=== PATIENT | female | born 2000 | race Caucasian/White ===

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

== ENCOUNTER 2019-02-25 23:41 | Emergency (ER) | payer MEDICAID, OTHER ==
[2019-02-25 23:54] LABS: BILIRUBIN,URINE NEGATIVE (NEGATIVE); GLUCOSE, URINE (UA) NEGATIVE (NEGATIVE); KETONES,URINE (UA) NEGATIVE (NEGATIVE); LEUKOCYTE ESTERASE, URINE NEGATIVE (NEGATIVE); NITRITE,URINE NEGATIVE (NEGATIVE); OCCULT BLOOD,URINE NEGATIVE (NEGATIVE); PH,URINE 7.5 PH (5.0-7.5); PROTEIN,URINE NEGATIVE (NEGATIVE); UROBILINOGEN,URINE 0.2 (NORMAL) E.U./dL (NORMAL)
--- NOTE | 2019-02-25 23:54 | ED Physician Documentation ---
PD HPI NVD - Stated complaint Stated Complaint: VOMITING/BODY ACHES - History obtained from History obtained from: Patient - History of Present Illness Timing - onset: How many days ago (3-4) Timing - duration: Days (3-4) Timing - details: Abrupt onset (onset vomiting and diarrhea (mild) with diffuse crampy abd pain 3-4 days ago, that has persisted. Has general myalgias and malaise, some URI/congestion. No headache.), Still present Associated symptoms: Fever, Abdominal pain (diffuse crampy), Loss of appetite Contributing factors: No: Sick contact, Bad food, Travel Improved by: No: Vomiting Worsened by: Eating Similar symptoms before: Has not had sx before Recently seen: Not recently seen Review of Systems Constitutional: reports: Fever, Myalgias, Fatigue Nose: reports: Congestion Throat: reports: Sore throat Respiratory: denies: Cough GI: reports: Abdominal Pain, Nausea, Vomiting, Diarrhea. denies: Abdominal Swelling, Constipation, Hematemesis, Bloody / black stool : denies: Dysuria, Frequency Skin: denies: Rash Neurologic: reports: Generalized weakness. denies: Altered mental status, Headache PD PAST MEDICAL HISTORY - Past Medical History Respiratory: Asthma - Past Surgical History Past Surgical History: No - Present Medications Home Medications: Ambulatory Orders Medication Instructions Recorded Confirmed Naproxen [Naprosyn] 500 mg PO BID #20 tablet 11/20/18 RX: cephALEXin [Cephalexin] 500 mg PO TID #20 tablet 11/20/18 Ondansetron Odt [Zofran] 4 mg TL Q6H PRN #15 tablet 02/26/19 RX: Famotidine 20 mg PO DAILY #15 tablet 02/26/19 - Allergies Allergies/Adverse Reactions: Allergies Allergy/AdvReac Type Severity Reaction Status Date / Time iodine Allergy Anaphylaxis Verified 02/25/19 23:49 Penicillins Allergy swelling Verified 11/20/18 15:35 - Social History Does the pt smoke?: Yes Smoking Status: Current every day smoker Does the pt drink ETOH?: Yes Does the pt have substance abuse?: No - Immunizations Immunizations are current?: No Immunizations: TDAP >10years/unknown - POLST Patient has POLST: No PD ED PE NORMAL - Vitals Vital signs reviewed: Yes - General General: Alert and oriented X 3, Well developed/nourished - HEENT HEENT: Ears normal, Pharynx benign. No: Moist mucous membranes - Neck Neck: Supple, no meningeal sign, No adenopathy - Cardiac Cardiac: RRR, No murmur - Respiratory Respiratory: Clear bilaterally - Abdomen Abdomen: Soft, Non distended, No organomegaly, Other (Diffuse mildly tender without guarding nor percussion tenderness. Not focally tender. ). No: Normal bowel sounds (diminished) - Female Female : Deferred - Rectal Rectal: Deferred - Back Back: No CVA TTP - Derm Derm: Normal color, Warm and dry - Neuro Neuro: Alert and oriented X 3, No motor deficit, Normal speech Results - Vitals Vitals: Vital Signs - 24 hr 02/25/19 02/25/19 02/26/19 23:49 23:53 01:43 Temperature 36.9 C 36.6 C Heart Rate 100 100 90 Respiratory 16 16 16 Rate Blood Pressure 115/67 115/67 102/67 O2 Saturation 96 96 99 Oxygen O2 Source Room air - Labs Labs: Laboratory Tests 02/25/19 02/26/19 02/26/19 23:45 00:20 00:20 WBC 4.2 L RBC 4.42 Hgb 12.7 Hct 38.0 MCV 86.0 MCH 28.7 MCHC 33.4 RDW 13.6 Plt Count 159 MPV 11.1 H Neut # (Auto) 2.4 Lymph # (Auto) 1.1 L [place] # (Auto) 0.7 Eos # (Auto) 0.1 Baso # (Auto) 0.0 Absolute Nucleated RBC 0.00 Nucleated RBC % 0.0 Sodium 138 Potassium 3.6 Chloride 104 Carbon Dioxide 24 Anion Gap 10.0 BUN 8 Creatinine 0.5 Estimated GFR (MDRD) 159 Glucose 103 H Calcium 8.7 Total Bilirubin 0.6 AST 26 ALT 30 Alkaline Phosphatase 53 Total Protein 6.9 Albumin 3.9 Globulin 3.0 Albumin/Globulin Ratio 1.3 Lipase 141 H Urine Color YELLOW Urine Clarity CLEAR Urine pH 7.5 Ur Specific [place] <=1.005 Urine Protein NEGATIVE Urine Glucose (UA) NEGATIVE Urine Ketones NEGATIVE Urine Occult Blood NEGATIVE Urine Nitrite NEGATIVE Urine Bilirubin NEGATIVE Urine Urobilinogen 0.2 (NORMAL) Ur Leukocyte Esterase NEGATIVE Ur Microscopic Review NOT INDICATED Urine Culture Comments NOT INDICATED Urine HCG, Qual NEGATIVE PD MEDICAL DECISION MAKING - ED course Complexity details: reviewed results, re-evaluated patient (improved symptoms and able to take PO after meds and fluids. Feeling improved. Labs are pretty good. Isolated elevated Lipase, I think from vomiting. ), considered differential, d/w patient Departure - Departure Disposition: 01 Home, Self Care Clinical Impression: Viral illness Nausea and vomiting Qualifiers: Vomiting type: unspecified Vomiting Intractability: intractable Qualified Code(s): R11.2 - Nausea with vomiting, unspecified Condition: Stable Record reviewed to determine appropriate education?: Yes Instructions: ED Nausea Vomiting Prescriptions: RX: Famotidine 20 mg PO DAILY #15 tablet Ondansetron Odt [Zofran] 4 mg TL Q6H PRN #15 tablet PRN Reason: Nausea / Vomiting Comments: Your stomach will be irritated for several days still so bland food and frequent fluids without too much spicy. Consider some acid reducing medicine such as famotidine daily for a week or 2. Add in some antacid such as Maalox or Mylanta if needed for heartburn or indigestion. Use ondansetron if needed for persistent nausea. I would assume your illness will improve now over the next day or 2 and be back to normal within a few days. Discharge Date/Time: 02/26/19 01:55
[2019-02-25 23:57] LABS: CLARITY,URINE CLEAR (CLEAR); HCG UR QUAL NEGATIVE
[2019-02-26] MEDS ORDERED: ONDANSETRON 4 MG/2 ML VIAL IVP STA (00:04)
[2019-02-26] MEDS ORDERED: FAMOTIDINE 20 MG/2 ML VIAL IVP STA (00:04)
[2019-02-26] MEDS ORDERED: KETOROLAC 15 MG/ML VIAL IVP STA (00:04)
[2019-02-26] MEDS ORDERED: SODIUM CHLORIDE 0.9% 1,000 ML IV ONE ×2 (00:04)
[2019-02-26 00:30] LABS: EOSINOPHILS # (AUTO) 0.1 10^3/uL (0.0-0.7); EOSINOPHILS % (AUTO) 1.9 %; HGB - HEMOGLOBIN 12.7 g/dL (12.0-16.0); LYMPHOCYTES # (AUTO) 1.1 10^3/uL (1.5-3.5); LYMPHOCYTES % (AUTO) 25.5 %; MEAN CORPUSCULAR HEMOGLOBIN 28.7 pg (27.0-31.0); MEAN CORPUSCULAR HGB CONC 33.4 g/dL (32.0-36.0); MEAN PLATELET VOLUME 11.1 fL (7.9-10.8); MONOCYTES # (AUTO) 0.7 10^3/uL (0.0-1.0); NEUTROPHILS # (AUTO) 2.4 10^3/uL (1.5-6.6); NEUTROPHILS % (AUTO) 56.4 %; PLT - PLATELET COUNT 159 10^3/uL (130-450); RED BLOOD COUNT 4.42 10^6/uL (4.20-5.40); RED CELL DISTRIBUTION WIDTH 13.6 % (12.0-15.0); WHITE BLOOD COUNT 4.2 x10^3/uL (4.8-10.8)
[2019-02-26 00:41] LABS: ALBUMIN 3.9 g/dL (3.2-5.5); ALBUMIN/GLOBULIN RATIO 1.3 (1.0-2.2); BILIRUBIN,TOTAL 0.6 mg/dL (0.2-1.0); CALCIUM 8.7 mg/dL (8.5-10.3); CREATININE 0.5 mg/dL (0.4-1.0); TOTAL PROTEIN 6.9 g/dL (6.7-8.2)
[2019-02-26] MEDS ORDERED: MAG HYDROX/AL HYDROX/SIMETH 30 ML UDC PO STA (01:09)
[2019-02-26] MEDS ORDERED: ONDANSETRON ODT 4 MG Prepack 2 TL PRN (01:10)
[2019-02-26 01:44] VITALS: BP 102/67
== END 2019-02-26 01:55 | disposition home or self-care (01) ==
LOC: ED 23:41
DX: B34.9 Viral infection, unspecified (principal); R11.2 Nausea with vomiting, unspecified; F17.200 Nicotine dependence, unspecified, uncomplicated
CPT/HCPCS: 36415; 80053; 81003; 81025; 83690; 85025; 96361; 96374; 99283; A9270; 81001; 87086

== ENCOUNTER 2019-06-23 07:43 | Outpatient (CLI) | payer MEDICAID | END 2019-06-23 07:44 | disposition critical access hospital (66) | LOC: EMS 07:43 | PROVIDERS: ATTEND Surgery | DX: R11.2 Nausea with vomiting, unspecified (principal); Z59.0 Homelessness | CPT/HCPCS: A0425; A0427; A0999 ==

== ENCOUNTER 2019-06-23 08:21 | Emergency (ER) | payer MEDICAID ==
[2019-06-23] MEDS ORDERED: FAMOTIDINE 20 MG/2 ML VIAL IVP STA (08:34)
[2019-06-23] MEDS ORDERED: METOCLOPRAMIDE 10 MG/2 ML VIAL IVP STA (08:34)
[2019-06-23] MEDS ORDERED: LACTATED RINGERS 1,000 ML IV STA (08:34)
--- NOTE | 2019-06-23 08:37 | ED Physician Documentation ---
History of Present Illness - Stated complaint Stated Complaint: N/V/ ABD PAIN - Chief complaint Chief Complaint: Abd Pain - Additonal information Additional information: This is a 18-year-old female who presents with vomiting and abdominal d iscomfort. Patient states she shared 2 bottles of [place] Rum last night with friends, she also snorted some Vicodin, she woke up at 3:30 AM this morning feeling malaise and has been vomiting since then. She states that her stomach is diffusely uncomfortable, She denies a specific area of worse pain. No history of abdominal problems or surgeries. No dysuria Review of Systems Constitutional: denies: Fever Cardiac: denies: Chest pain / pressure Respiratory: denies: Dyspnea GI: reports: Nausea, Vomiting : denies: Dysuria Skin: denies: Rash Neurologic: denies: Generalized weakness Psychiatric: denies: Depressed PD PAST MEDICAL HISTORY - Past Medical History Respiratory: Asthma - Past Surgical History Past Surgical History: No - Present Medications Home Medications: Ambulatory Orders Medication Instructions Recorded Confirmed Ondansetron Odt [Zofran] 4 mg TL Q6H PRN #10 tablet 06/23/19 - Allergies Allergies/Adverse Reactions: Allergies Allergy/AdvReac Type Severity Reaction Status Date / Time iodine Allergy Anaphylaxis Verified 06/23/19 08:25 Penicillins Allergy swelling Verified 06/23/19 08:25 - Social History Does the pt smoke?: Yes Smoking Status: Current every day smoker Does the pt drink ETOH?: Yes Does the pt have substance abuse?: No - Immunizations Immunizations are current?: No Immunizations: TDAP >10years/unknown - POLST Patient has POLST: No PD ED PE NORMAL - Vitals Vital signs reviewed: Yes - General General: Alert and oriented X 3 - HEENT HEENT: PERRL - Neck Neck: Supple, no meningeal sign - Cardiac Cardiac: RRR, No murmur - Respiratory Respiratory: No respiratory distress, Clear bilaterally - Abdomen Abdomen: Soft, Non distended, Other (Very mild epigastric discomfort with deep palpation.) - Derm Derm: Warm and dry - Extremities Extremities: No deformity - Neuro Neuro: Alert and oriented X 3 - Psych Psych: Normal mood, Normal affect Results - Vitals Vitals: Vital Signs - 24 hr 06/23/19 06/23/19 06/23/19 08:24 08:25 10:07 Temperature 36.5 C Heart Rate 77 78 83 Respiratory 18 18 15 Rate Blood Pressure 126/93 H 108/81 H 106/64 O2 Saturation 100 99 100 Oxygen O2 Source Room air - Labs Labs: Laboratory Tests 06/23/19 06/23/19 06/23/19 08:47 08:47 08:47 WBC 6.4 RBC 4.40 Hgb 12.3 Hct 37.9 MCV 86.1 MCH 28.0 MCHC 32.5 RDW 14.7 Plt Count 174 MPV 11.0 H Neut # (Auto) 5.2 Lymph # (Auto) 0.[address] [place] # (Auto) 0.2 Eos # (Auto) 0.0 Baso # (Auto) 0.0 Absolute Nucleated RBC 0.00 Nucleated RBC % 0.0 Sodium 143 Potassium 3.9 Chloride 109 Carbon Dioxide 25 Anion Gap 9.0 BUN 11 Creatinine 0.6 Estimated GFR (MDRD) 129 Glucose 126 H Calcium 8.6 Total Bilirubin 0.5 AST 21 ALT 23 Alkaline Phosphatase 53 Total Protein 7.1 Albumin 4.2 Globulin 2.9 Albumin/Globulin Ratio 1.4 Lipase 33 Serum HCG, Qual NEGATIVE PD MEDICAL DECISION MAKING - ED course Complexity details: considered differential (Alcohol intoxication, alcoholic gastritis, pancreatitis, electrolyte disturbance, dehydration) ED course: Patient is uncomfortable appearing but non-toxic on arrival. She is given zofran, famotidine, and crystalloid IV. Afterwards she was feeling better but continued to have some epigastric discomfort. CBC, CMP unremarkable, lipase normal, HCG negative. After a GI cocktail she is feeling much improved and eager to go home. She is clinically sober, tolerating PO, and has a benign, non- tender abdominal exam. I discussed that this is likely a mixture of alcohol gastritis and a hangover and patient should stop drinking and needs to be particularly careful combining sedating medications. I discussed the risks of narcotic medications in depth and counseled her to completely avoid them. Return precautions were discussed and patient was discharged in the care of her friends. Departure - Departure Disposition: Home, Self Care Clinical Impression: Alcoholic gastritis Qualifiers: Chronicity: acute Gastritis bleeding: without bleeding Qualified Code(s): K29.20 - Alcoholic gastritis without bleeding Condition: Good Follow-Up: Your,PCP [Other] - Within 1 week Prescriptions: Ondansetron Odt [Zofran] 4 mg TL Q6H PRN #10 tablet PRN Reason: Nausea / Vomiting Comments: You were seen today for vomiting and abdominal discomfort. This is likely due to inflammation of your stomach caused by the alcohol last night. Your labs today were reassuring. Please drink plenty of fluids, avoid any further drugs or alcohol, and if you are having any persistent abdominal pain or vomiting despite the Zofran, return to the emergency department. Discharge Date/Time: 06/23/19 10:33
[2019-06-23 08:54] LABS: BASOPHILS % (AUTO) 0.3 %; EOSINOPHILS % (AUTO) 0.6 %; HGB - HEMOGLOBIN 12.3 g/dL (12.0-16.0); LYMPHOCYTES # (AUTO) 0.9 10^3/uL (1.5-3.5); LYMPHOCYTES % (AUTO) 13.7 %; MEAN CORPUSCULAR HGB CONC 32.5 g/dL (32.0-36.0); MEAN CORPUSCULAR VOLUME 86.1 fL (81.0-99.0); MONOCYTES # (AUTO) 0.2 10^3/uL (0.0-1.0); MONOCYTES % (AUTO) 2.8 %; NEUTROPHILS # (AUTO) 5.2 10^3/uL (1.5-6.6); NEUTROPHILS % (AUTO) 82.1 %; PLT - PLATELET COUNT 174 10^3/uL (130-450); RED CELL DISTRIBUTION WIDTH 14.7 % (12.0-15.0); WHITE BLOOD COUNT 6.4 x10^3/uL (4.8-10.8)
[2019-06-23 09:06] LABS: ALBUMIN 4.2 g/dL (3.2-5.5); ALBUMIN/GLOBULIN RATIO 1.4 (1.0-2.2); BILIRUBIN,TOTAL 0.5 mg/dL (0.2-1.0); CALCIUM 8.6 mg/dL (8.5-10.3); CREATININE 0.6 mg/dL (0.4-1.0); TOTAL PROTEIN 7.1 g/dL (6.7-8.2)
[2019-06-23 09:18] LABS: HCG,QUALITATIVE BLOOD NEGATIVE
[2019-06-23] MEDS ORDERED: MAG HYDROX/AL HYDROX/SIMETH 30 ML UDC PO STA (09:59)
[2019-06-23 10:08] VITALS: BP 106/64
== END 2019-06-23 10:33 | disposition home or self-care (01) ==
LOC: EDUNIT# → ED 08:21
DX: K29.20 Alcoholic gastritis without bleeding (principal); F17.200 Nicotine dependence, unspecified, uncomplicated
CPT/HCPCS: 36415; 80053; 83690; 84703; 85025; 96361; 96374; 96375; 99283; A9270; J2765; J7120

== ENCOUNTER 2019-07-12 15:31 | Emergency (ER) | payer MEDICAID ==
[2019-07-12 15:46] VITALS: BP 112/69
--- NOTE | 2019-07-12 17:54 | ED Physician Documentation ---
PD HPI FEMALE - Stated complaint Stated Complaint: FEM - Chief complaint Chief Complaint: Abd Pain - History obtained from History obtained from: Patient PD PAST MEDICAL HISTORY - Past Medical History Respiratory: Asthma - Past Surgical History Past Surgical History: No - Present Medications Home Medications: Ambulatory Orders Medication Instructions Recorded Confirmed Ondansetron Odt [Zofran] 4 mg TL Q6H PRN #10 tablet 06/23/19 - Allergies Allergies/Adverse Reactions: Allergies Allergy/AdvReac Type Severity Reaction Status Date / Time iodine Allergy Anaphylaxis Verified 07/12/19 15:46 Penicillins Allergy swelling Verified 07/12/19 15:46 - Social History Does the pt smoke?: Yes Smoking Status: Current every day smoker Does the pt drink ETOH?: Yes Does the pt have substance abuse?: No - Immunizations Immunizations are current?: No Immunizations: TDAP >10years/unknown - POLST Patient has POLST: No Results - Vitals Vitals: Vital Signs - 24 hr 07/12/19 15:40 Temperature 36.8 C Heart Rate 105 H Respiratory 17 Rate Blood Pressure 112/69 O2 Saturation 100 Oxygen O2 Source Room air
== END 2019-07-12 18:03 | disposition left against medical advice (07) ==
LOC: ED 15:31
DX: Z53.21 Procedure and treatment not carried out due to patient leaving prior to being seen by health care provider (principal)
CPT/HCPCS: 81001; 81003; 81025; 87086

== ENCOUNTER 2020-08-18 12:17 | Emergency (ER) | payer MEDICAID ==
[2020-08-18] MEDS ORDERED: ONDANSETRON 4 MG/2 ML VIAL IVP STA (12:31)
[2020-08-18] MEDS ORDERED: KETOROLAC 30 MG/ML VIAL IVP STA (12:31)
[2020-08-18] MEDS ORDERED: LOPERAMIDE 2 MG CAPSULE PO STA (12:31)
[2020-08-18] MEDS ORDERED: SODIUM CHLORIDE 0.9% 1,000 ML IV STA (12:31)
--- NOTE | 2020-08-18 12:33 | ED Physician Documentation ---
PD HPI ABD PAIN - Stated complaint Stated Complaint: NAUSEA, SHAKES, SHIVERS - Chief complaint Chief Complaint: Abd Pain - History obtained from History obtained from: Patient - Additional information Additional information: 19 yo F with history of gastritis or ulcers, not under current treatment for same felt nauseous all day yesterday and then overnight developed vomiting, upper abdominal pain that she describes as cramping, and mild diarrhea. No blood from either end. No history of recent travel or sick contacts. No fevers. Review of Systems Ten Systems: 10 systems reviewed and negative Constitutional: reports: Sweats. denies: Fever, Chills Cardiac: denies: Chest pain / pressure, Palpitations Respiratory: denies: Dyspnea, Cough PD PAST MEDICAL HISTORY - Past Medical History Respiratory: Asthma - Past Surgical History Past Surgical History: No - Present Medications Home Medications: Ambulatory Orders Medication Instructions Recorded Confirmed Ondansetron Odt [Zofran] 4 mg TL Q6H PRN #10 tablet 06/23/19 Dicyclomine [Bentyl] 1 - 2 tab PO QID PRN #20 capsule 08/18/20 Loperamide [Imodium] 2 mg PO QID PRN #10 capsule 08/18/20 Ondansetron Odt [Zofran] 4 mg TL Q6H PRN #10 tablet 08/18/20 - Allergies Allergies/Adverse Reactions: Allergies Allergy/AdvReac Type Severity Reaction Status Date / Time iodine Allergy Anaphylaxis Verified 08/18/20 12:23 Penicillins Allergy swelling Verified 08/18/20 12:23 - Social History Does the pt smoke?: Yes Smoking Status: Current every day smoker Does the pt drink ETOH?: Yes Does the pt have substance abuse?: No - Family History Family history: reports: Non contributory - Immunizations Immunizations are current?: No Immunizations: TDAP >10years/unknown - POLST Patient has POLST: No PD ED PE NORMAL - Vitals Vital signs reviewed: Yes - General General: Alert and oriented X 3, Other (Is uncomfortable and shaky) - HEENT HEENT: PERRL, EOMI - Neck Neck: Supple, no meningeal sign, No bony TTP - Cardiac Cardiac: RRR, No murmur - Respiratory Respiratory: No respiratory distress, Clear bilaterally - Abdomen Abdomen: Other (Mild upper abdominal tenderness that does not seem to lateralize, no surgical sign, negative Sanchez sign. No lower abdominal tenderness) - Back Back: No CVA TTP, No spinal TTP - Derm Derm: Normal color, Warm and dry - Extremities Extremities: No edema, No calf tenderness / cord - Neuro Neuro: Alert and oriented X 3, Normal speech Eye Opening: Spontaneous Motor: Obeys Commands Verbal: Oriented GCS Score: 15 - Psych Psych: Normal mood, Normal affect Results - Vitals Vitals: Vital Signs - 24 hr 08/18/20 08/18/20 08/18/20 12:23 13:38 15:05 Temperature 36.5 C Heart Rate 97 98 82 Respiratory 18 16 15 Rate Blood Pressure 109/69 82/48 L 97/60 O2 Saturation 100 97 96 08/18/20 15:26 Temperature 37.3 C Heart Rate 110 H Respiratory 15 Rate Blood Pressure 97/60 O2 Saturation 97 Oxygen O2 Source Room air - Labs Labs: Laboratory Tests 08/18/20 08/18/20 08/18/20 12:40 12:40 13:30 WBC 11.8 H RBC 4.72 Hgb 13.7 Hct 40.7 MCV 86.2 MCH 29.0 MCHC 33.7 RDW 13.2 Plt Count 219 MPV 10.5 Neut # (Auto) 10.6 H Lymph # (Auto) 0.8 L [place] # (Auto) 0.2 Eos # (Auto) 0.2 Baso # (Auto) 0.0 Absolute Nucleated RBC 0.00 Nucleated RBC % 0.0 Sodium 142 Potassium 4.0 Chloride 108 Carbon Dioxide 19 L Anion Gap 15.0 H BUN 16 Creatinine 0.7 Estimated GFR (MDRD) 107 Glucose 137 H Calcium 9.4 Total Bilirubin 0.8 AST 26 ALT 30 Alkaline Phosphatase 66 Total Protein 8.6 H Albumin 5.1 Globulin 3.5 Albumin/Globulin Ratio 1.5 Lipase 26 Urine Color YELLOW Urine Clarity CLEAR Urine pH 7.5 Ur Specific [place] 1.020 Urine Protein TRACE Urine Glucose (UA) NEGATIVE Urine Ketones 15 H Urine Occult Blood NEGATIVE Urine Nitrite NEGATIVE Urine Bilirubin NEGATIVE Urine Urobilinogen 0.2 (NORMAL) Ur Leukocyte Esterase NEGATIVE Ur Microscopic Review NOT INDICATED Urine Culture Comments NOT INDICATED Urine HCG, Qual NEGATIVE PD MEDICAL DECISION MAKING - ED course ED course: 19-year-old woman with seeming viral gastroenteritis. Vomiting, diarrhea, upper abdominal cramps. She was administered initially Zofran, Toradol, Imodium and felt better, but failed an oral challenge. Subsequently was administered some Phenergan and a GI cocktail with complete resolution and passed a p.o. challenge. Nontender on repeat examination prior to discharge. Given close return precautions. Departure - Departure Disposition: Home, Self Care Clinical Impression: Gastroenteritis Condition: Good Record reviewed to determine appropriate education?: Yes Instructions: ED Gastroenteritis Viral Prescriptions: Dicyclomine [Bentyl] 1 - 2 tab PO QID PRN #20 capsule PRN Reason: Abdominal Pain Loperamide [Imodium] 2 mg PO QID PRN #10 capsule PRN Reason: Diarrhea Ondansetron Odt [Zofran] 4 mg TL Q6H PRN #10 tablet PRN Reason: Nausea / Vomiting Comments: As discussed it seems like you have a viral process known as gastroenteritis. Generally this only lasts a day or 2. Return Wednesday if not improved, anytime for new or worsening symptoms, especially if you develop lower abdominal pain as discussed.
[2020-08-18 12:45] LABS: BASOPHILS % (AUTO) 0.2 %; EOSINOPHILS # (AUTO) 0.2 10^3/uL (0.0-0.7); EOSINOPHILS % (AUTO) 1.4 %; HGB - HEMOGLOBIN 13.7 g/dL (12.0-16.0); LYMPHOCYTES # (AUTO) 0.8 10^3/uL (1.5-3.5); LYMPHOCYTES % (AUTO) 6.7 %; MEAN CORPUSCULAR HGB CONC 33.7 g/dL (32.0-36.0); MEAN CORPUSCULAR VOLUME 86.2 fL (81.0-99.0); MEAN PLATELET VOLUME 10.5 fL (7.9-10.8); MONOCYTES # (AUTO) 0.2 10^3/uL (0.0-1.0); MONOCYTES % (AUTO) 1.7 %; NEUTROPHILS # (AUTO) 10.6 10^3/uL (1.5-6.6); NEUTROPHILS % (AUTO) 89.6 %; PLT - PLATELET COUNT 219 10^3/uL (130-450); RED BLOOD COUNT 4.72 10^6/uL (4.20-5.40); RED CELL DISTRIBUTION WIDTH 13.2 % (12.0-15.0); WHITE BLOOD COUNT 11.8 x10^3/uL (4.8-10.8)
[2020-08-18 12:59] LABS: ALBUMIN 5.1 g/dL (3.2-5.5); ALBUMIN/GLOBULIN RATIO 1.5 (1.0-2.2); BILIRUBIN,TOTAL 0.8 mg/dL (0.2-1.0); CALCIUM 9.4 mg/dL (8.5-10.3); CREATININE 0.7 mg/dL (0.4-1.0); TOTAL PROTEIN 8.6 g/dL (6.7-8.2)
[2020-08-18 13:54] LABS: BILIRUBIN,URINE NEGATIVE (NEGATIVE); GLUCOSE, URINE (UA) NEGATIVE (NEGATIVE); KETONES,URINE (UA) 15 mg/dL (NEGATIVE); LEUKOCYTE ESTERASE, URINE NEGATIVE (NEGATIVE); NITRITE,URINE NEGATIVE (NEGATIVE); OCCULT BLOOD,URINE NEGATIVE (NEGATIVE); PH,URINE 7.5 PH (5.0-7.5); PROTEIN,URINE TRACE mg/dL (NEGATIVE); UROBILINOGEN,URINE 0.2 (NORMAL) E.U./dL (NORMAL)
[2020-08-18] MEDS ORDERED: PROMETHAZINE INJ 25 MG in SODIUM CHLORIDE 0.9% 50 ML IV STA (13:57)
[2020-08-18 14:02] LABS: CLARITY,URINE CLEAR (CLEAR); HCG UR QUAL NEGATIVE
[2020-08-18] MEDS ORDERED: LIDOCAINE VISCOUS 2% 15 ML UDC MM STA (14:41)
[2020-08-18] MEDS ORDERED: MAG HYDROX/AL HYDROX/SIMETH 30 ML UDC PO STA (14:41)
[2020-08-18 15:06] VITALS: BP 97/60
== END 2020-08-18 15:50 | disposition home or self-care (01) ==
LOC: ED 12:17
DX: K52.9 Noninfective gastroenteritis and colitis, unspecified (principal); F17.200 Nicotine dependence, unspecified, uncomplicated
CPT/HCPCS: 36415; 80053; 81003; 81025; 83690; 85025; 96365; 96375; 99284; A9270; J7040; 81001; 87086

== ENCOUNTER 2020-10-18 09:19 | Outpatient (CLI) | payer MEDICAID | END 2020-10-18 09:20 | disposition critical access hospital (66) | LOC: EMS 09:19 | PROVIDERS: ATTEND Emergency Medicine | DX: R06.00 Dyspnea, unspecified (principal) | CPT/HCPCS: A0425; A0429; A0999 ==

== ENCOUNTER 2020-10-18 09:34 | Emergency (ER) | payer MEDICAID ==
[2020-10-18] MEDS ORDERED: SODIUM CHLORIDE 0.9% 1,000 ML IV STA (09:43)
[2020-10-18] MEDS ORDERED: DEXAMETHASONE 10 MG/ML VIAL IVP STA (09:43)
--- NOTE | 2020-10-18 09:46 | ED Physician Documentation ---
PD HPI DYSPNEA - Stated complaint Stated Complaint: SOA - History obtained from History obtained from: Patient - History of Present Illness Timing - onset: How many days ago (4) Timing - onset during: Rest Timing - duration: Days (4) Timing - details: Gradual onset, Still present Inciting event(s): URI Improved by: Inhaler/neb Worsened by: Exertion, Coughing Associated symptoms: Cough, Wheezing, Chest pain / discomfort. No: Fever Similar symptoms before: Diagnosis (asthma) Recently seen: Not recently seen Review of Systems Constitutional: denies: Fever Eyes: denies: Decreased vision Ears: denies: Ear pain Nose: reports: Congestion. denies: Rhinorrhea / runny nose Throat: denies: Sore throat Cardiac: reports: Chest pain / pressure. denies: Palpitations, Pedal edema, Calf pain Respiratory: reports: Dyspnea, Cough, Wheezing GI: reports: Nausea, Vomiting, Diarrhea. denies: Abdominal Pain, Constipation : denies: Dysuria, Frequency Skin: denies: Rash Musculoskeletal: denies: Neck pain, Back pain, Extremity pain Neurologic: denies: Generalized weakness, Focal weakness PD PAST MEDICAL HISTORY - Past Medical History Respiratory: Asthma - Past Surgical History Past Surgical History: No - Present Medications Home Medications: Ambulatory Orders Medication Instructions Recorded Confirmed Ondansetron Odt [Zofran] 4 mg TL Q6H PRN #10 tablet 06/23/19 Dicyclomine [Bentyl] 1 - 2 tab PO QID PRN #20 capsule 08/18/20 Loperamide [Imodium] 2 mg PO QID PRN #10 capsule 08/18/20 Ondansetron Odt [Zofran] 4 mg TL Q6H PRN #10 tablet 08/18/20 Albuterol Sulf [Ventolin Hfa 1 - 2 puffs INH Q4HR PRN #1 inhaler 10/18/20 Inhaler] Azithromycin [Zithromax] 250 mg PO DAILY #6 tab 10/18/20 predniSONE [Deltasone] 40 mg PO DAILY 5 Days #10 tab 10/18/20 - Allergies Allergies/Adverse Reactions: Allergies Allergy/AdvReac Type Severity Reaction Status Date / Time iodine Allergy Anaphylaxis Verified 10/18/20 09:45 Penicillins Allergy swelling Verified 10/18/20 09:45 - Social History Does the pt smoke?: Yes Smoking Status: Current every day smoker Does the pt drink ETOH?: Yes Does the pt have substance abuse?: No - Immunizations Immunizations are current?: No Immunizations: TDAP >10years/unknown - POLST Patient has POLST: No PD ED PE NORMAL - Vitals Vital signs reviewed: Yes (normal ) - General General: Alert and oriented X 3, No acute distress, Well developed/nourished - HEENT HEENT: Atraumatic, PERRL, EOMI, Ears normal, Pharynx benign - Neck Neck: Supple, no meningeal sign, No bony TTP - Cardiac Cardiac: RRR, No murmur - Respiratory Respiratory: Other (tachypneic at rest with wheezes and rhonchi throughout with fair air movement. 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, No motor deficit, No sensory deficit, Normal speech Eye Opening: Spontaneous Motor: Obeys Commands Verbal: Oriented GCS Score: 15 - Psych Psych: Normal mood, Normal affect Results - Vitals Vitals: Vital Signs - 24 hr 10/18/20 10/18/20 09:39 10:33 Temperature 37.0 C Heart Rate 94 97 Respiratory 22 16 Rate Blood Pressure 123/72 O2 Saturation 96 Oxygen O2 Source Nasal cannula Oxygen Flow Rate 2 - Rads (name of study) cxr Radiology: Prelim report reviewed (Impression: No acute cardiopulmonary process demonstrated radiographically.), EMP read indepedently, See rad report PD MEDICAL DECISION MAKING - ED course Complexity details: reviewed results, re-evaluated patient, considered differential, d/w patient, d/w family ED course: 19 y/o female with asthma exacerbation Has improvement with use of albuterol inhaler she did get a duo neb inhaler in route which helped as well. Here in the emergency room she is given 10 mg of dexamethasone and a liter of saline and we will place her on a course of antibiotic and steroid as well as provide an inhaler for an acute asthma exacerbation with cough. Departure - Departure Disposition: 01 Home, Self Care Clinical Impression: Asthmatic bronchitis with acute exacerbation Qualifiers: Asthma severity: mild Asthma persistence: intermittent Qualified Code(s): J45.21 - Mild intermittent asthma with (acute) exacerbation Condition: Stable Instructions: ED Bronchitis Asthmatic Follow-Up: Chrissy [facility] [Provider Group] Prescriptions: Albuterol Sulf [Ventolin Hfa Inhaler] 1 - 2 puffs INH Q4HR PRN #1 inhaler PRN Reason: Shortness Of Air/Wheezing predniSONE [Deltasone] 40 mg PO DAILY 5 Days #10 tab Azithromycin [Zithromax] 250 mg PO DAILY #6 tab
--- NOTE | 2020-10-18 10:16 | XRAY Report ---
PROCEDURE: Chest 1 View X-Ray INDICATIONS: Shortness of breath TECHNIQUE: One view of the chest was acquired. COMPARISON: None. FINDINGS: Surgical changes and devices: None. Lungs and pleura: No pleural effusions or pneumothorax. Lungs are clear. Mediastinum: Mediastinal contours appear normal. Heart size is normal. Bones and chest wall: No suspicious bony lesions. Overlying soft tissues appear unremarkable. IMPRESSION: No acute cardiopulmonary process demonstrated radiographically. Reviewed by: Dereje Kapadia MD on 10/18/2020 10:14 AM RUST Approved by: Dereje Kapadia MD on 10/18/2020 10:14 AM RUST Station ID: [id number]
[2020-10-18] MEDS ORDERED: ALBUTEROL 1 PUFF INH STA (10:19)
[2020-10-18 10:52] VITALS: BP 120/80
== END 2020-10-18 10:53 | disposition home or self-care (01) ==
LOC: EDUNIT# → ED 09:34
DX: J45.21 Mild intermittent asthma with (acute) exacerbation (principal); R05 Cough; Z20.822 Contact with and (suspected) exposure to COVID-19; F17.200 Nicotine dependence, unspecified, uncomplicated
CPT/HCPCS: 94640; 94664; 96374; 99284

== ENCOUNTER 2020-12-21 10:34 | Emergency (ER) | payer MEDICAID ==
--- OUTSIDE RECORDS SUMMARY | 2020-12-21 10:36 | EXTERNAL MEDICAL SUMMARY RPT | Continuity of Care Document ---
:2000 Demographics Phone Unavailable Preferred Language Unknown Marital Status Unknown Pentecostalism Affiliation Unknown Race Unknown Ethnic Group Unknown Author Organization [place] Address [address] [phone] Phone Social History date description facility [phone]
--- OUTSIDE RECORDS SUMMARY | 2020-12-21 11:31 | EXTERNAL MEDICAL SUMMARY RPT | Continuity of Care Document ---
:2000 Demographics Phone Unavailable Preferred Language Unknown Marital Status Unknown Samaritan Affiliation Unknown Race Unknown Ethnic Group Unknown Author Organization [place] Address [address] [phone] Phone Social History date description facility [phone]
[2020-12-21] MEDS ORDERED: ONDANSETRON 4 MG/2 ML VIAL IVP STA (11:39)
[2020-12-21] MEDS ORDERED: FAMOTIDINE 20 MG/2 ML VIAL IVP STA (11:39)
[2020-12-21] MEDS ORDERED: PROMETHAZINE 25 MG TABLET PO STA (11:39)
[2020-12-21] MEDS ORDERED: LACTATED RINGERS 1,000 ML IV STA (11:39)
[2020-12-21] MEDS ORDERED: LIDOCAINE TOPICAL 4% 50 ML BOTTLE MM STA (11:40)
[2020-12-21] MEDS ORDERED: MAG HYDROX/AL HYDROX/SIMETH 30 ML UDC PO STA (11:40)
[2020-12-21 12:05] LABS: MUDS CUTOFF CONCENTRATIONS CUTOFF CONC BELOW:
[2020-12-21 12:12] LABS: BILIRUBIN,URINE NEGATIVE (NEGATIVE); GLUCOSE, URINE (UA) NEGATIVE (NEGATIVE); KETONES,URINE (UA) 40 mg/dL (NEGATIVE); LEUKOCYTE ESTERASE, URINE NEGATIVE (NEGATIVE); NITRITE,URINE NEGATIVE (NEGATIVE); OCCULT BLOOD,URINE SMALL (NEGATIVE); PH,URINE 5.5 PH (5.0-7.5); PROTEIN,URINE 30 mg/dL (NEGATIVE); UROBILINOGEN,URINE 0.2 (NORMAL) E.U./dL (NORMAL)
[2020-12-21 12:13] LABS: CLARITY,URINE SL. CLOUDY (CLEAR); HCG UR QUAL NEGATIVE
[2020-12-21 12:16] LABS: BASOPHILS % (AUTO) 0.5 %; EOSINOPHILS # (AUTO) 0.1 10^3/uL (0.0-0.7); EOSINOPHILS % (AUTO) 1.5 %; HCT - HEMATOCRIT 44.1 % (37.0-47.0); HGB - HEMOGLOBIN 14.8 g/dL (12.0-16.0); LYMPHOCYTES # (AUTO) 1.1 10^3/uL (1.5-3.5); LYMPHOCYTES % (AUTO) 18.1 %; MEAN CORPUSCULAR HEMOGLOBIN 28.5 pg (27.0-31.0); MEAN CORPUSCULAR HGB CONC 33.6 g/dL (32.0-36.0); MEAN CORPUSCULAR VOLUME 84.8 fL (81.0-99.0); MONOCYTES # (AUTO) 0.2 10^3/uL (0.0-1.0); MONOCYTES % (AUTO) 4.1 %; NEUTROPHILS # (AUTO) 4.5 10^3/uL (1.5-6.6); NEUTROPHILS % (AUTO) 75.5 %; PLT - PLATELET COUNT 215 10^3/uL (130-450); RED CELL DISTRIBUTION WIDTH 12.8 % (12.0-15.0); WHITE BLOOD COUNT 5.9 x10^3/uL (4.8-10.8)
[2020-12-21 12:21] LABS: AMPHETAMINE SCREEN,URINE NEGATIVE (NEGATIVE); BARBITURATE SCREEN,UR NEGATIVE (NEGATIVE); BENZODIAZEPINES SCREEN, URINE NEGATIVE (NEGATIVE); COCAINE SCREEN URINE NEGATIVE (NEGATIVE); METHADONE SCREEN, URINE NEGATIVE (NEGATIVE); METHAMPHETAMINES SCREEN, URINE NEGATIVE (NEGATIVE); OPIATE SCREEN, URINE NEGATIVE (NEGATIVE); OXYCODONE SCREEN, URINE NEGATIVE (NEGATIVE); PROPOXYPHENE SCREEN, URINE NEGATIVE (NEGATIVE); THC CANNABINOID SCREEN, URINE POSITIVE (NEGATIVE); TRICYCLIC ANTIDEPRESSANT,URINE NEGATIVE (NEGATIVE)
[2020-12-21 12:26] LABS: ALBUMIN 5.4 g/dL (3.2-5.5); ALBUMIN/GLOBULIN RATIO 1.5 (1.0-2.2); BILIRUBIN,TOTAL 0.8 mg/dL (0.2-1.0); CREATININE 0.7 mg/dL (0.4-1.0); POTASSIUM 3.5 mmol/L (3.5-5.0)
[2020-12-21 12:33] LABS: BACTERIA,URINE Moderate /HPF (None Seen); SQUAMOUS EPITHELIAL CELL,UR MANY Squamous (<= Few); WBC,URINE 0-3 /HPF (0-5)
[2020-12-21] MEDS ORDERED: LIDOCAINE VISCOUS 2% 15 ML UDC MM STA (12:45)
[2020-12-21] MEDS ORDERED: METOCLOPRAMIDE 10 MG/2 ML VIAL IVP STA (14:10)
[2020-12-21] MEDS ORDERED: HALOPERIDOL 5 MG/ML VIAL IM STA (14:12)
--- NOTE | 2020-12-21 14:12 | ED Physician Documentation ---
History of Present Illness - Stated complaint Stated Complaint: ABD PX - Chief complaint Chief Complaint: Abd Pain - History obtained from History obtained from: Patient - Additonal information Additional information: 20-year-old woman with history of gastritis versus GERD, asthma, daily marijuana smoker presents with abdominal pain in the bilateral lower quadrants for the past 2 weeks, constant, associated with nonbloody nonbilious nausea vomiting for the past 4 days. She also has been experiencing chills but denies diarrhea or objective fever. Review of Systems Ten Systems: 10 systems reviewed and negative Constitutional: reports: Chills. denies: Fever GI: reports: Abdominal Pain, Nausea, Vomiting : denies: Dysuria PD PAST MEDICAL HISTORY - Past Medical History Past Medical History: Yes Respiratory: Asthma - Past Surgical History Past Surgical History: No - Present Medications Home Medications: Ambulatory Orders Medication Instructions Recorded Confirmed Ondansetron Odt [Zofran] 4 mg TL Q6H PRN #10 tablet 06/23/19 Dicyclomine [Bentyl] 1 - 2 tab PO QID PRN #20 capsule 08/18/20 Loperamide [Imodium] 2 mg PO QID PRN #10 capsule 08/18/20 Ondansetron Odt [Zofran] 4 mg TL Q6H PRN #10 tablet 08/18/20 Albuterol Sulf [Ventolin Hfa 1 - 2 puffs INH Q4HR PRN #1 inhaler 10/18/20 Inhaler] Azithromycin [Zithromax] 250 mg PO DAILY #6 tab 10/18/20 predniSONE [Deltasone] 40 mg PO DAILY 5 Days #10 tab 10/18/20 Ondansetron Odt [Zofran Odt] 4 mg TL Q6H PRN #10 tablet 12/21/20 - Allergies Allergies/Adverse Reactions: Allergies Allergy/AdvReac Type Severity Reaction Status Date / Time iodine Allergy Anaphylaxis Verified 12/21/20 11:21 Penicillins Allergy swelling Verified 12/21/20 11:21 - Social History Does the pt smoke?: Yes Smoking Status: Current every day smoker Does the pt drink ETOH?: Yes Does the pt have substance abuse?: Yes Substance Use and Type: Marijuana - Immunizations Immunizations are current?: No Immunizations: TDAP >10years/unknown - POLST Patient has POLST: No PD ED PE NORMAL - Vitals Vital signs reviewed: Yes - General General: Alert and oriented X 3, Well developed/nourished, Other (uncomfortable appearing, initially retching with nbnb vomitus, improving after medications) - HEENT HEENT: Atraumatic, PERRL, EOMI - Neck Neck: Supple, no meningeal sign - Cardiac Cardiac: Other (borderline tachycardic rate, regular rhythm) - Respiratory Respiratory: No respiratory distress, Clear bilaterally - Abdomen Abdomen: Non tender, Non distended, Other (discomfort to palpation of BL LQ) - Female Female : Deferred - Rectal Rectal: Deferred - Back Back: No CVA TTP - Derm Derm: Normal color - Extremities Extremities: No deformity - Neuro Neuro: Alert and oriented X 3 - Psych Psych: Normal mood, Normal affect Results - Vitals Vitals: Vital Signs - 24 hr 12/21/20 11:17 Temperature 36.2 C L Heart Rate 95 Respiratory 16 Rate Blood Pressure 108/70 O2 Saturation 99 Oxygen O2 Source Room air - Labs Labs: Laboratory Tests 12/21/20 12/21/20 12/21/20 11:48 12:00 12:00 WBC 5.9 RBC 5.20 Hgb 14.8 Hct 44.1 MCV 84.8 MCH 28.5 MCHC 33.6 RDW 12.8 Plt Count 215 MPV 11.0 H Neut # (Auto) 4.5 Lymph # (Auto) 1.1 L [place] # (Auto) 0.2 Eos # (Auto) 0.1 Baso # (Auto) 0.0 Absolute Nucleated RBC 0.00 Nucleated RBC % 0.0 Sodium 139 Potassium 3.5 Chloride 102 Carbon Dioxide 23 Anion Gap 14.0 H BUN 20 Creatinine 0.7 Estimated GFR (MDRD) 106 Glucose 144 H Calcium 10.0 Total Bilirubin 0.8 AST 21 ALT 20 Alkaline Phosphatase 63 Total Protein 9.0 H Albumin 5.4 Globulin 3.6 Albumin/Globulin Ratio 1.5 Lipase 28 Urine Color YELLOW Urine Clarity SL. CLOUDY Urine pH 5.5 Ur Specific [place] >=1.030 H Urine Protein 30 H Urine Glucose (UA) NEGATIVE Urine Ketones 40 H Urine Occult Blood SMALL H Urine Nitrite NEGATIVE Urine Bilirubin NEGATIVE Urine Urobilinogen 0.2 (NORMAL) Ur Leukocyte Esterase NEGATIVE Urine RBC 6-10 H Urine WBC 0-3 Ur Squamous Epith Cells MANY Squamous H Urine Bacteria Moderate H Ur Microscopic Review INDICATED Urine Culture Comments NOT INDICATED Urine HCG, Qual NEGATIVE Urine Opiates Screen NEGATIVE Ur Oxycodone Screen NEGATIVE Urine Methadone Screen NEGATIVE Ur Propoxyphene Screen NEGATIVE Ur Barbiturates Screen NEGATIVE Ur Tricyclics Screen NEGATIVE Ur Phencyclidine Scrn NEGATIVE Ur Amphetamine Screen NEGATIVE U Methamphetamines Scrn NEGATIVE U Benzodiazepines Scrn NEGATIVE Urine Cocaine Screen NEGATIVE U Cannabinoids Screen POSITIVE H PD MEDICAL DECISION MAKING - ED course ED course: 20-year-old woman with history of gastritis versus GERD, active marijuana user, presents with abdominal pain, nausea and vomiting progressively worsening over the past 2 weeks. Her lab work is noncontributory and she is feeling better after symptomatic care in the emergency department. We will obtain an abdominal ultrasound to evaluate for cause of her pain. Departure - Departure Disposition: 01 Home, Self Care Clinical Impression: Nausea and vomiting, Abdominal pain Condition: Good Instructions: ED Abdominal Pain Unkn Cause Follow-Up: Hien Gillespie MD [Provider Admit Priv/Credential] - Prescriptions: Ondansetron Odt [Zofran Odt] 4 mg TL Q6H PRN #10 tablet PRN Reason: Nausea / Vomiting Comments: You were seen in the emergency department for nausea and vomiting and abdominal pain. Your lab work and ultrasound did not show a dangerous cause for your pain. Please follow-up with [facility] [employer] [employer]. Return to emergency department if you expands any new or worsening symptoms or have other concerns.
--- NOTE | 2020-12-21 16:08 | Ultrasound Report ---
PROCEDURE: Pelvic Complete INDICATIONS: BL LQ pain TECHNIQUE: Real-time transabdominal scanning was performed of the pelvic organs, with image documentation. COMPARISON: None FINDINGS: Uterus: Uterus is normal in size at 7.5 x 2.3 x 4 cm. Endometrium measures 2 mm in combined thickne ss. An IUD is seen at the expected location. Nabothian cysts are incidentally noted. Ovaries: The right ovary measures 4.8 x 1.7 x 1.7 cm and the left ovary measures 3.6 x 1.7 x 1.6 cm. No significant ovarian abnormalities are seen. There are more than 12 follicles seen on each side. No adnexal masses are seen. Other: No free pelvic fluid. IMPRESSION: A cause of acute pain cannot be seen. More than 12 follicles can be seen involving each ovary. Please consider polycystic ovarian syndrome. IUD seen in place. Note: Concordant preliminary findings given by the silk crepe machine operator upon the completion of the examination to Dr. Sanderson at 3:55 PM on 12/21/2020. Reviewed by: Freddy Aguilera MD on 12/21/2020 3:07 PM ANNALISA Approved by: Freddy Aguilera MD on 12/21/2020 3:07 PM ANNALISA Station ID: [id number]
[2020-12-21 16:19] VITALS: BP 92/70
--- NOTE | 2020-12-21 16:27 | Ultrasound Report ---
PROCEDURE: Transvaginal INDICATIONS: Bilat Lower quad px TECHNIQUE: Real-time scanning was performed of the fetus, with image documentation. Endovaginal scanning: Was performed COMPARISON: None. FINDINGS: Uterus: Uterus is normal in size at 7.5 x 2.3 x 4 cm. Endometrium measures 2 mm in combine d thickness. An IUD is seen at the expected location. Nabothian cysts are incidentally noted. Ovarie s: The right ovary measures 4.8 x 1.7 x 1.7 cm and the left ovary measures 3.6 x 1.7 x 1.6 cm. No sig nificant ovarian abnormalities are seen. There are more than 12 follicles seen on each side. No adnex al masses are seen. Other: No free pelvic fluid. IMPRESSION: A cause of acute pain cannot be seen. More than 12 follicles can be seen involving each ovary. Please consider polycystic ovarian syndrome. IUD seen in place. Note: Concordant preliminary findings given by the plastic finisher upon the completion of the examination to Dr. Sanderson at 3:55 PM on 12/21/2020. Reviewed by: Freddy Aguilera MD on 12/21/2020 3:26 PM [facility] Approved by: Freddy Aguilera MD on 12/21/2020 3:26 PM [facility] Station ID: [id number]
== END 2020-12-21 16:19 | disposition home or self-care (01) ==
LOC: ED 10:34
DX: R11.2 Nausea with vomiting, unspecified (principal); R10.31 Right lower quadrant pain; R10.32 Left lower quadrant pain; Z87.19 Personal history of other diseases of the digestive system; Z97.5 Presence of (intrauterine) contraceptive device; J45.909 Unspecified asthma, uncomplicated; F17.200 Nicotine dependence, unspecified, uncomplicated; F12.90 Cannabis use, unspecified, uncomplicated
CPT/HCPCS: 36415; 76830; 76856; 80053; 80306; 81001; 81025; 83690; 85025; 96372; 96374; 96375; 99284; 99285; A9270; J2765; J7120; Q0169; 81003; 87086

== ENCOUNTER 2021-01-09 18:51 | Outpatient (CLI) | payer MEDICAID | END 2021-01-09 18:52 | disposition critical access hospital (66) | LOC: EMS 18:51 | DX: R11.2 Nausea with vomiting, unspecified (principal); R68.83 Chills (without fever) | CPT/HCPCS: A0425; A0427 ==

== ENCOUNTER 2021-01-09 19:11 | Emergency (ER) | payer MEDICAID ==
[2021-01-09] MEDS ORDERED: ONDANSETRON 4 MG/2 ML VIAL IVP STA (19:40)
[2021-01-09 20:02] LABS: BASOPHILS % (AUTO) 0.3 %; EOSINOPHILS % (AUTO) 0.3 %; HCT - HEMATOCRIT 40.7 % (37.0-47.0); HGB - HEMOGLOBIN 13.7 g/dL (12.0-16.0); LYMPHOCYTES # (AUTO) 0.8 10^3/uL (1.5-3.5); LYMPHOCYTES % (AUTO) 9.5 %; MEAN CORPUSCULAR HEMOGLOBIN 28.7 pg (27.0-31.0); MEAN CORPUSCULAR HGB CONC 33.7 g/dL (32.0-36.0); MEAN CORPUSCULAR VOLUME 85.1 fL (81.0-99.0); MEAN PLATELET VOLUME 11.3 fL (7.9-10.8); MONOCYTES # (AUTO) 0.4 10^3/uL (0.0-1.0); MONOCYTES % (AUTO) 4.4 %; NEUTROPHILS # (AUTO) 7.3 10^3/uL (1.5-6.6); NEUTROPHILS % (AUTO) 85.2 %; PLT - PLATELET COUNT 184 10^3/uL (130-450); RED BLOOD COUNT 4.78 10^6/uL (4.20-5.40); RED CELL DISTRIBUTION WIDTH 13.2 % (12.0-15.0); WHITE BLOOD COUNT 8.6 x10^3/uL (4.8-10.8)
[2021-01-09 20:10] LABS: MUDS CUTOFF CONCENTRATIONS CUTOFF CONC BELOW:
[2021-01-09 20:12] LABS: GLUCOSE, URINE (UA) NEGATIVE (NEGATIVE); KETONES,URINE (UA) 15 mg/dL (NEGATIVE); LEUKOCYTE ESTERASE, URINE NEGATIVE (NEGATIVE); NITRITE,URINE NEGATIVE (NEGATIVE); OCCULT BLOOD,URINE NEGATIVE (NEGATIVE); PROTEIN,URINE NEGATIVE (NEGATIVE); UROBILINOGEN,URINE 0.2 (NORMAL) E.U./dL (NORMAL)
[2021-01-09 20:14] LABS: ALBUMIN 4.6 g/dL (3.2-5.5); ALBUMIN/GLOBULIN RATIO 1.6 (1.0-2.2); BILIRUBIN,TOTAL 0.6 mg/dL (0.2-1.0); CALCIUM 8.7 mg/dL (8.5-10.3); CREATININE 0.7 mg/dL (0.4-1.0); POTASSIUM 3.2 mmol/L (3.5-5.0); TOTAL PROTEIN 7.5 g/dL (6.7-8.2)
[2021-01-09 20:25] LABS: BILIRUBIN,URINE NEGATIVE (NEGATIVE); ICTOTEST,URINE NEGATIVE
[2021-01-09 20:26] LABS: AMPHETAMINE SCREEN,URINE NEGATIVE (NEGATIVE); BARBITURATE SCREEN,UR NEGATIVE (NEGATIVE); BENZODIAZEPINES SCREEN, URINE NEGATIVE (NEGATIVE); CLARITY,URINE CLEAR (CLEAR); COCAINE SCREEN URINE NEGATIVE (NEGATIVE); HCG UR QUAL NEGATIVE; METHADONE SCREEN, URINE NEGATIVE (NEGATIVE); METHAMPHETAMINES SCREEN, URINE NEGATIVE (NEGATIVE); OPIATE SCREEN, URINE NEGATIVE (NEGATIVE); OXYCODONE SCREEN, URINE NEGATIVE (NEGATIVE); PROPOXYPHENE SCREEN, URINE NEGATIVE (NEGATIVE); THC CANNABINOID SCREEN, URINE POSITIVE (NEGATIVE); TRICYCLIC ANTIDEPRESSANT,URINE NEGATIVE (NEGATIVE)
[2021-01-09] MEDS ORDERED: KETOROLAC 30 MG/ML VIAL IVP STA (20:30)
[2021-01-09] MEDS ORDERED: DROPERIDOL 5 MG/2 ML VIAL IVP STA (20:30)
--- NOTE | 2021-01-09 20:33 | ED Physician Documentation ---
History of Present Illness - Stated complaint Stated Complaint: VOMITING - Chief complaint Chief Complaint: Abd Pain - History obtained from History obtained from: Patient - Additonal information Additional information: Patient comes emergency department chief complaint of low abdominal pain, nausea, and vomiting that started a few days ago. Patient states she had had a cough for a few days before that and that that is also still going on. Patient states that she began to feel nauseated and lower abdominal pain developed and has gradually worsened. She states it is a sharp stabbing pain across her low abdomen, and that it escalates when she starts to get nauseated. Patient denies any fevers or chills. No dysuria. No back pain. She states that she is not known to be and has an IUD. The patient had intercourse earlier in the course of the illness and states that it was very painful, but she did not have any vaginal bleeding. No history of abdominal surgeries. No other complaints at this time. Review of Systems Ten Systems: 10 systems reviewed and negative Constitutional: reports: Reviewed and negative. denies: Fever, Chills Eyes: reports: Reviewed and negative Ears: reports: Reviewed and negative Nose: reports: Reviewed and negative Throat: reports: Reviewed and negative Cardiac: reports: Reviewed and negative Respiratory: reports: Reviewed and negative GI: reports: Abdominal Pain, Nausea, Vomiting : reports: Reviewed and negative. denies: Dysuria Skin: reports: Reviewed and negative Musculoskeletal: reports: Reviewed and negative Neurologic: reports: Reviewed and negative Psychiatric: reports: Reviewed and negative Endocrine: reports: Reviewed and negative Immunocompromised: reports: Reviewed and negative PD PAST MEDICAL HISTORY - Past Medical History Past Medical History: Yes Respiratory: Asthma - Past Surgical History Past Surgical History: No - Present Medications Home Medications: Ambulatory Orders Medication Instructions Recorded Confirmed Ondansetron Odt [Zofran] 4 mg TL Q6H PRN #10 tablet 06/23/19 Dicyclomine [Bentyl] 1 - 2 tab PO QID PRN #20 capsule 08/18/20 Loperamide [Imodium] 2 mg PO QID PRN #10 capsule 08/18/20 Ondansetron Odt [Zofran] 4 mg TL Q6H PRN #10 tablet 08/18/20 Albuterol Sulf [Ventolin Hfa 1 - 2 puffs INH Q4HR PRN #1 inhaler 10/18/20 Inhaler] Azithromycin [Zithromax] 250 mg PO DAILY #6 tab 10/18/20 predniSONE [Deltasone] 40 mg PO DAILY 5 Days #10 tab 10/18/20 Ondansetron Odt [Zofran Odt] 4 mg TL Q6H PRN #10 tablet 12/21/20 Promethazine Supp [Phenergan Supp] 25 mg [place] Q8HR PRN #8 supp 01/09/21 - Allergies Allergies/Adverse Reactions: Allergies Allergy/AdvReac Type Severity Reaction Status Date / Time iodine Allergy Anaphylaxis Verified 01/09/21 19:33 Penicillins Allergy swelling Verified 01/09/21 19:33 - Social History Does the pt smoke?: Yes Smoking Status: Current every day smoker Does the pt drink ETOH?: Yes Does the pt have substance abuse?: Yes Substance Use and Type: Marijuana - Immunizations Immunizations are current?: Yes Immunizations: TDAP >10years/unknown - POLST Patient has POLST: No PD ED PE NORMAL - Vitals Vital signs reviewed: Yes - General General: Alert and oriented X 3, Well developed/nourished, Other (Patient appears uncomfortable but otherwise no apparent distress) - HEENT HEENT: Atraumatic, PERRL, EOMI, Moist mucous membranes - Neck Neck: Supple, no meningeal sign - Cardiac Cardiac: RRR, No murmur, Strong equal pulses - Respiratory Respiratory: No respiratory distress, Clear bilaterally - Abdomen Abdomen: Soft, Non distended, Other (Moderate tenderness across low abdomen without rebound or guarding. No mass.) - Back Back: No CVA TTP - Derm Derm: Normal color, Warm and dry, No rash - Extremities Extremities: No deformity, No edema, No calf tenderness / cord - Neuro Neuro: Alert and oriented X 3, nail feeder 2-12 intact, Normal speech, Other (Otherwise grossly intact) - Psych Psych: Normal mood, Normal affect Results - Vitals Vitals: Vital Signs - 24 hr 01/09/21 01/09/21 01/09/21 19:15 20:19 21:51 Temperature 96.4 C H 36.5 C 36.4 C L Heart Rate 91 71 73 Respiratory 20 16 16 Rate Blood Pressure 99/66 114/70 100/55 L O2 Saturation 96 99 99 01/09/21 22:40 Temperature 36.4 C L Heart Rate 77 Respiratory 18 Rate Blood Pressure 110/68 O2 Saturation 100 Oxygen O2 Source Room air - Labs Labs: Laboratory Tests 01/09/21 01/09/21 01/09/21 19:52 19:52 20:06 WBC 8.6 RBC 4.78 Hgb 13.7 Hct 40.7 MCV 85.1 MCH 28.7 MCHC 33.7 RDW 13.2 Plt Count 184 MPV 11.3 H Neut # (Auto) 7.3 H Lymph # (Auto) 0.8 L Haak[place] # (Auto) 0.4 Eos # (Auto) 0.0 Baso # (Auto) 0.0 Absolute Nucleated RBC 0.00 Nucleated RBC % 0.0 Sodium 142 Potassium 3.2 L Chloride 109 Carbon Dioxide 20 L Anion Gap 13.0 BUN 14 Creatinine 0.7 Estimated GFR (MDRD) 106 Glucose 124 H Calcium 8.7 Total Bilirubin 0.6 AST 20 ALT 18 Alkaline Phosphatase 54 Total Protein 7.5 Albumin 4.6 Globulin 2.9 Albumin/Globulin Ratio 1.6 Urine Color DARK YELLOW Urine Clarity CLEAR Urine pH 5.0 Ur Specific Pender >=1.030 H Urine Protein NEGATIVE Urine Glucose (UA) NEGATIVE Urine Ketones 15 H Urine Occult Blood NEGATIVE Urine Nitrite NEGATIVE Urine Bilirubin NEGATIVE Urine Urobilinogen 0.2 (NORMAL) Ur Leukocyte Esterase NEGATIVE Ur Microscopic Review NOT INDICATED Urine Culture Comments NOT INDICATED Urine HCG, Qual NEGATIVE Urine Opiates Screen NEGATIVE Ur Oxycodone Screen NEGATIVE Urine Methadone Screen NEGATIVE Ur Propoxyphene Screen NEGATIVE Ur Barbiturates Screen NEGATIVE Ur Tricyclics Screen NEGATIVE Ur Phencyclidine Scrn NEGATIVE Ur Amphetamine Screen NEGATIVE U Methamphetamines Scrn NEGATIVE U Benzodiazepines Scrn NEGATIVE Urine Cocaine Screen NEGATIVE U Cannabinoids Screen POSITIVE H - Rads (name of study) abd/pelvis CT Radiology: Final report received, EMP read indepedently, See rad report (nad) PD MEDICAL DECISION MAKING - ED course Complexity details: reviewed results, re-evaluated patient, considered d ifferential, d/w patient ED course: Patient was treated symptomatically with IV fluids, Zofran, Toradol, and droperidol, After which she was found to be feeling better.. She was worked up with laboratory studies and CT scan of the abdomen and pelvis, All of which were negative. I was not sure what was causing the patient's symptoms, but no emergent condition was found here. Patient was anxious to go home, and I felt that she could be discharged. We have discussed home management of the symptoms, as well as usual indications for return. Departure - Departure Disposition: 01 Home, Self Care Clinical Impression: Vomiting Qualifiers: Vomiting type: bilious vomiting Nausea presence: with nausea Qualified Code(s): R11.14 - Bilious vomiting Abdominal pain Qualifiers: Abdominal location: lower abdomen, unspecified Qualified Code(s): R10.30 - Lower abdominal pain, unspecified Condition: Stable Instructions: ED Abdominal Pain Unkn Cause, ED Nausea Vomiting Prescriptions: Promethazine Supp [Phenergan Supp] 25 mg [place] Q8HR PRN #8 supp PRN Reason: Nausea / Vomiting Comments: Your CT scan looks good. The radiologist has given the official reading, and has not found any evidence of a serious or emergent condition causing your symptoms. In fact, no abnormalities were seen. The pain you are having may be due to positioning of your IUD, and if it continues, you will need to follow-up with your oil laboratory analyst or primary care physician to discuss having it removed or replaced. You may take the nausea medication that has been prescribed, as needed. Please be sure to get plenty of fluids, especially water, to keep yourself hydrated. Discharge Date/Time: 01/09/21 22:50
[2021-01-09] MEDS ORDERED: SODIUM CHLORIDE 0.9% 1,000 ML IV STA (20:35)
[2021-01-09] MEDS ORDERED: IOPAMIDOL-300 100 ML VIAL ONE (20:49)
[2021-01-09] MEDS ORDERED: IOPAMIDOL-300 100 ML VIAL IVP ONE (21:35)
--- NOTE | 2021-01-09 22:14 | CT Report ---
PROCEDURE: Abdomen/Pelvis W INDICATIONS: low abd pain, vomiting CONTRAST: IV CONTRAST: Isovue 300 ml: 100 PO CONTRAST: *NO PO CONTRAST TECHNIQUE: After the administration of intravenous contrast, 5 mm thick sections acquired from the diaphragms to the symphysis. 5 mm thick coronal and sagittal reformats were acquired. For radiation dose reducti on, the following was used: automated exposure control, adjustment of mA and/or kV according to mel ent size. COMPARISON: Ultrasound pelvis, 12/21/2020. FINDINGS: Image quality: Excellent. ABDOMEN: Lung bases: There are respiratory motion artifacts at lung bases. Lung bases are clear. Heart size is normal. Small hiatal hernia. Solid organs: Liver and spleen are normal in size and enhancement. Gallbladder is normal. Biliary system is non dilated. Pancreas enhances normally. No adrenal nodules. Kidneys demonstrate normal size and enhancement, without hydronephrosis. Peritoneum and bowel: Bowel loops demonstrate normal wall thickness and caliber. Appendix is normal . No free fluid or air. Nodes and vessels: No retroperitoneal or mesenteric adenopathy by size criteria. Small mesenteric l ymph nodes in the right lower quadrant are nonspecific and likely reactive. Aorta and inferior vena c lakisha are normal in size. Miscellaneous: No ventral hernias. PELVIS: Genitourinary: Bladder is contracted. There is an IUD in uterus. Ovaries are grossly normal. No alma e fluid in the cul-de-sac. Miscellaneous: No inguinal hernias or adenopathy. Bones: No suspicious bony lesions. No vertebral body compression fractures. IMPRESSION: 1. No acute abnormalities in abdomen or pelvis. Reviewed by: Skip Francois MD on 01/09/2021 10:12 PM PDT Approved by: Skip Francois MD on 01/09/2021 10:12 PM PDT Station ID: [id number]
[2021-01-09 22:50] VITALS: BP 110/68
== END 2021-01-09 22:50 | disposition home or self-care (01) ==
LOC: EDUNIT# → ED 19:11
DX: R10.30 Lower abdominal pain, unspecified (principal); R11.14 Bilious vomiting; Z97.5 Presence of (intrauterine) contraceptive device; F17.200 Nicotine dependence, unspecified, uncomplicated
CPT/HCPCS: 36415; 74177; 80053; 80306; 81003; 81025; 85025; 96361; 96374; 96375; 99284; Q9967; 81001; 87086

== ENCOUNTER 2021-07-08 08:02 | Outpatient (CLI) | payer MEDICAID | END 2021-07-08 08:03 | disposition critical access hospital (66) | LOC: EMS 08:02 | DX: R10.10 Upper abdominal pain, unspecified (principal); R10.32 Left lower quadrant pain; R11.2 Nausea with vomiting, unspecified | CPT/HCPCS: A0425; A0429; A0999 ==

== ENCOUNTER 2021-07-08 08:25 | Emergency (ER) | payer MEDICAID ==
[2021-07-08] MEDS ORDERED: DROPERIDOL 5 MG/2 ML VIAL IVP STA (08:34)
[2021-07-08] MEDS ORDERED: SODIUM CHLORIDE 0.9% 1,000 ML IV STA (08:34)
[2021-07-08] MEDS ORDERED: diphenhydrAMINE INJ 50 MG/ML VIAL IVP STA (08:34)
--- NOTE | 2021-07-08 08:37 | ED Physician Documentation ---
PD HPI ABD PAIN - Stated complaint Stated Complaint: ABD PX/N/V - Chief complaint Chief Complaint: Abd Pain - History obtained from History obtained from: Patient - Additional information Additional information: Patient comes emergency department chief complaint of nausea, vomiting, and abdominal pain for the last 2 days since eating salmon and drinking beer 2 nights ago. Patient states that normally it is only hard alcohol that bothers her and not beer so much. She does admit to smoking some marijuana regularly, as well. Patient denies any fevers or chills. She states she has had some sweats before vomiting but has not felt feverish per se. No urinary complaints. No back pain. Patient is not a diabetic. She denies any sick contacts. No other complaints at this time. Review of records reveals the patient has been here for abdominal complaints previously but the last time she was seen in the emergency department here was in December. Review of Systems Ten Systems: 10 systems reviewed and negative Constitutional: reports: Reviewed and negative Eyes: reports: Reviewed and negative Ears: reports: Reviewed and negative Nose: reports: Reviewed and negative Throat: reports: Reviewed and negative Cardiac: reports: Reviewed and negative Respiratory: reports: Reviewed and negative GI: reports: Abdominal Pain, Nausea, Vomiting : reports: Reviewed and negative Skin: reports: Reviewed and negative Musculoskeletal: reports: Reviewed and negative Neurologic: reports: Reviewed and negative Psychiatric: reports: Reviewed and negative Endocrine: reports: Reviewed and negative Immunocompromised: reports: Reviewed and negative PD PAST MEDICAL HISTORY - Past Medical History Respiratory: Asthma - Past Surgical History Past Surgical History: No - Present Medications Home Medications: Ambulatory Orders Medication Instructions Recorded Confirmed Ondansetron Odt [Zofran] 4 mg TL Q6H PRN #10 tablet 06/23/19 Dicyclomine [Bentyl] 1 - 2 tab PO QID PRN #20 capsule 08/18/20 Loperamide [Imodium] 2 mg PO QID PRN #10 capsule 08/18/20 Ondansetron Odt [Zofran] 4 mg TL Q6H PRN #10 tablet 08/18/20 Albuterol Sulf [Ventolin Hfa 1 - 2 puffs INH Q4HR PRN #1 inhaler 10/18/20 Inhaler] Azithromycin [Zithromax] 250 mg PO DAILY #6 tab 10/18/20 predniSONE [Deltasone] 40 mg PO DAILY 5 Days #10 tab 10/18/20 Ondansetron Odt [Zofran Odt] 4 mg TL Q6H PRN #10 tablet 12/21/20 Promethazine Supp [Phenergan Supp] 25 mg [place] Q8HR PRN #8 supp 01/09/21 - Allergies Allergies/Adverse Reactions: Allergies Allergy/AdvReac Type Severity Reaction Status Date / Time iodine Allergy Anaphylaxis Verified 01/09/21 19:33 Penicillins Allergy swelling Verified 01/09/21 19:33 shellfish derived Allergy Anaphylaxis Verified 07/08/21 08:30 - Social History Does the pt smoke?: Yes Smoking Status: Current every day smoker Does the pt drink ETOH?: Yes Does the pt have substance abuse?: Yes - Immunizations Immunizations are current?: Yes Immunizations: TDAP >10years/unknown - POLST Patient has POLST: No PD ED PE NORMAL - Vitals Vital signs reviewed: Yes - General General: Alert and oriented X 3, Well developed/nourished, Other (Patient appears anxious and uncomfortable, but otherwise in no apparent distress.) - HEENT HEENT: Atraumatic, PERRL, EOMI, Moist mucous membranes - Neck Neck: Supple, no meningeal sign - Cardiac Cardiac: RRR, No murmur, Strong equal pulses - Respiratory Respiratory: No respiratory distress, Clear bilaterally - Abdomen Abdomen: Soft, Non distended, Other (Diffusely tender without rebound or guarding. Patient intermittently retches and brings up small amounts of white froth.) - Derm Derm: Normal color, Warm and dry, No rash - Extremities Extremities: No deformity, No edema - Neuro Neuro: Alert and oriented X 3, emergency department coordinator 2-12 intact, Normal speech - Psych Psych: Normal mood, Normal affect Results - Vitals Vitals: Vital Signs - 24 hr 07/08/21 09:34 Heart Rate 95 Respiratory 18 Rate Blood Pressure 98/58 L O2 Saturation 99 Oxygen O2 Source Room air - Labs Labs: Laboratory Tests 07/08/21 07/08/21 08:46 08:46 WBC 7.0 RBC 5.17 Hgb 15.0 Hct 44.0 MCV 85.1 MCH 29.0 MCHC 34.1 RDW 12.8 Plt Count 213 MPV 10.8 Neut # (Auto) 4.9 Lymph # (Auto) 1.5 [place] # (Auto) 0.6 Eos # (Auto) 0.0 Baso # (Auto) 0.0 Absolute Nucleated RBC 0.00 Nucleated RBC % 0.0 Sodium 136 Potassium 3.3 L Chloride 101 Carbon Dioxide 20 L Anion Gap 15.0 H BUN 20 Creatinine 0.9 Estimated GFR (MDRD) 79 L Glucose 129 H Calcium 10.3 Total Bilirubin 1.3 H AST 23 ALT 22 Alkaline Phosphatase 55 Total Protein 8.6 H Albumin 5.2 Globulin 3.4 Albumin/Globulin Ratio 1.5 Lipase 36 PD MEDICAL DECISION MAKING - ED course Complexity details: reviewed old records, reviewed results, re-evaluated patient, considered differential, d/w patient ED course: The patient was worked up with labs and treated symptomatically with IV fluids, droperidol, and Benadryl. Labs were unremarkable, and pt was feeling much better on re-eval. We have discussed symptomatic management at home, as well as the usual indications for return. Departure - Departure Disposition: 01 Home, Self Care Clinical Impression: Vomiting Qualifiers: Vomiting type: bilious vomiting Nausea presence: with nausea Qualified Code(s): R11.14 - Bilious vomiting Abdominal pain Qualifiers: Abdominal location: generalized Qualified Code(s): R10.84 - Generalized abdominal pain Condition: Stable Instructions: Diet Clear Liquid Dc, ED Nausea Vomiting Comments: Your labs look good. You may use your Zofran at home if needed. Mostly, please give your stomach a break from anything by mouth, even water, for about the next 6 hours. Then, you may take small sips of water, may be 1-2 at a time, then wait 20 minutes. If you do not vomit the small amount of water back up, you may take another 1 or 2 sips. If you can tolerate this several times in a row after 20 minutes, then you may shorten the time between sips to 15 minutes, then 10 minutes. After this, if you feel ready to eat something, you may try something simple and starchy like saltine crackers or Ramen noodles. It is most advisable for today, though, to just stick with the clear liquids and not try to eat anything until tomorrow. Discharge Date/Time: 07/08/21 10:01
[2021-07-08 08:52] LABS: BASOPHILS % (AUTO) 0.3 %; EOSINOPHILS % (AUTO) 0.4 %; LYMPHOCYTES # (AUTO) 1.5 10^3/uL (1.5-3.5); LYMPHOCYTES % (AUTO) 21.1 %; MEAN CORPUSCULAR HGB CONC 34.1 g/dL (32.0-36.0); MEAN CORPUSCULAR VOLUME 85.1 fL (81.0-99.0); MEAN PLATELET VOLUME 10.8 fL (7.9-10.8); MONOCYTES # (AUTO) 0.6 10^3/uL (0.0-1.0); MONOCYTES % (AUTO) 8.7 %; NEUTROPHILS # (AUTO) 4.9 10^3/uL (1.5-6.6); NEUTROPHILS % (AUTO) 69.4 %; PLT - PLATELET COUNT 213 10^3/uL (130-450); RED BLOOD COUNT 5.17 10^6/uL (4.20-5.40); RED CELL DISTRIBUTION WIDTH 12.8 % (12.0-15.0)
[2021-07-08 09:08] LABS: ALBUMIN 5.2 g/dL (3.2-5.5); ALBUMIN/GLOBULIN RATIO 1.5 (1.0-2.2); BILIRUBIN,TOTAL 1.3 mg/dL (0.2-1.0); CALCIUM 10.3 mg/dL (8.5-10.3); CREATININE 0.9 mg/dL (0.4-1.0); POTASSIUM 3.3 mmol/L (3.5-5.0); TOTAL PROTEIN 8.6 g/dL (6.7-8.2)
[2021-07-08 09:44] VITALS: BP 98/58
== END 2021-07-08 10:01 | disposition home or self-care (01) ==
LOC: EDUNIT# → ED 08:25
DX: R11.14 Bilious vomiting (principal); R10.84 Generalized abdominal pain; F17.200 Nicotine dependence, unspecified, uncomplicated
CPT/HCPCS: 36415; 80053; 83690; 85025; 96374; 99283; 99284; J1200

== ENCOUNTER 2021-11-13 21:09 | Emergency (ER) | payer MEDICAID ==
[2021-11-13 21:23] VITALS: BP 133/82
== END 2021-11-13 21:52 | disposition left against medical advice (07) ==
LOC: ED 21:09
DX: Z53.21 Procedure and treatment not carried out due to patient leaving prior to being seen by health care provider (principal)

== ENCOUNTER 2021-12-17 08:00 | Outpatient (CLI) | payer MEDICAID | END 2021-12-17 23:59 | disposition home or self-care (01) | LOC: LAB.N 08:00 | PROVIDERS: ATTEND Physician Assistant | DX: R50.9 Fever, unspecified (principal); Z20.822 Contact with and (suspected) exposure to COVID-19 ==

== ENCOUNTER 2022-02-06 15:34 | Outpatient (CLI) | payer MEDICAID ==
[2022-02-06 18:18] LABS: BASOPHILS % (AUTO) 0.4 %; EOSINOPHILS # (AUTO) 0.4 10^3/uL (0.0-0.7); EOSINOPHILS % (AUTO) 8.6 %; LYMPHOCYTES # (AUTO) 2.3 10^3/uL (1.5-3.5); LYMPHOCYTES % (AUTO) 45.8 %; MEAN CORPUSCULAR HEMOGLOBIN 29.2 pg (27.0-31.0); MEAN CORPUSCULAR HGB CONC 33.3 g/dL (32.0-36.0); MEAN CORPUSCULAR VOLUME 87.5 fL (81.0-99.0); MEAN PLATELET VOLUME 11.2 fL (7.9-10.8); MONOCYTES # (AUTO) 0.3 10^3/uL (0.0-1.0); MONOCYTES % (AUTO) 5.9 %; NEUTROPHILS # (AUTO) 1.9 10^3/uL (1.5-6.6); NEUTROPHILS % (AUTO) 39.3 %; PLT - PLATELET COUNT 221 10^3/uL (130-450); RED CELL DISTRIBUTION WIDTH 12.9 % (12.0-15.0); WHITE BLOOD COUNT 4.9 x10^3/uL (4.8-10.8)
[2022-02-06 18:33] LABS: CALCIUM 9.2 mg/dL (8.5-10.3); CREATININE 0.7 mg/dL (0.4-1.0)
== END 2022-02-06 15:35 | disposition home or self-care (01) ==
LOC: LAB.N 15:34
PROVIDERS: ATTEND Family Medicine
DX: N93.9 Abnormal uterine and vaginal bleeding, unspecified (principal)
CPT/HCPCS: 36415; 80048; 85025

== ENCOUNTER 2022-09-05 08:00 | Outpatient (CLI) | payer MEDICAID | END 2022-09-05 23:59 | disposition home or self-care (01) | LOC: LAB.N 08:00 | PROVIDERS: ATTEND Physician Assistant | DX: Z33.1 Pregnant state, incidental (principal) | CPT/HCPCS: 36415; 84702 ==

== ENCOUNTER 2022-10-01 12:25 | Outpatient (CLI) | payer MEDICAID ==
[2022-10-01 19:41] LABS: HCG,QUALITATIVE BLOOD NEGATIVE
== END 2022-10-01 23:59 | disposition home or self-care (01) ==
LOC: LAB.N 12:25
PROVIDERS: ATTEND Nurse Practitioner
DX: Z32.00 Encounter for pregnancy test, result unknown (principal)
CPT/HCPCS: 36415; 84703

== ENCOUNTER 2022-10-27 17:31 | Outpatient (CLI) | payer MEDICAID ==
--- NOTE | 2022-10-27 19:10 | XRAY Report ---
PROCEDURE: Chest 2 View X-Ray INDICATIONS: ACUTE COUGH TECHNIQUE: 2 views of the chest were acquired. COMPARISON: None. FINDINGS: Surgical changes and devices: None. Lungs and pleura: No pleural effusions or pneumothorax. Lungs are clear. Mediastinum: Mediastinal contours are normal. Heart size is normal. Bones and chest wall: No suspicious bony abnormalities. Soft tissues appear unremarkable. IMPRESSION: No acute cardiopulmonary pathology. Reviewed by: Kristofer Bowen MD on 10/27/2022 7:08 PM [facility] Approved by: Kristofer Bowen MD on 10/27/2022 7:08 PM [facility] Station ID: [id number]
== END 2022-10-27 17:32 | disposition home or self-care (01) ==
LOC: DI 17:31
PROVIDERS: ATTEND Physician Assistant
DX: R05.1 Acute cough (principal)

== ENCOUNTER 2022-10-28 18:53 | Emergency (ER) | payer MEDICAID ==
[2022-10-28 19:42] LABS: BILIRUBIN,URINE NEGATIVE (NEGATIVE); GLUCOSE, URINE (UA) NEGATIVE (NEGATIVE); KETONES,URINE (UA) 15 mg/dL (NEGATIVE); LEUKOCYTE ESTERASE, URINE NEGATIVE (NEGATIVE); NITRITE,URINE NEGATIVE (NEGATIVE); OCCULT BLOOD,URINE TRACE-INTA (NEGATIVE); PROTEIN,URINE TRACE mg/dL (NEGATIVE); UROBILINOGEN,URINE 0.2 (NORMAL) E.U./dL (NORMAL)
[2022-10-28 19:44] LABS: CLARITY,URINE HAZY (CLEAR)
[2022-10-28 19:44] LABS: BASOPHILS % (AUTO) 0.2 %; EOSINOPHILS % (AUTO) 0.1 %; HCT - HEMATOCRIT 41.8 % (37.0-47.0); LYMPHOCYTES # (AUTO) 1.6 10^3/uL (1.5-3.5); LYMPHOCYTES % (AUTO) 15.2 %; MEAN CORPUSCULAR HEMOGLOBIN 27.3 pg (27.0-31.0); MEAN CORPUSCULAR HGB CONC 33.5 g/dL (32.0-36.0); MEAN CORPUSCULAR VOLUME 81.5 fL (81.0-99.0); MONOCYTES # (AUTO) 0.5 10^3/uL (0.0-1.0); MONOCYTES % (AUTO) 4.7 %; NEUTROPHILS # (AUTO) 8.1 10^3/uL (1.5-6.6); NEUTROPHILS % (AUTO) 79.6 %; PLT - PLATELET COUNT 312 10^3/uL (130-450); RED BLOOD COUNT 5.13 10^6/uL (4.20-5.40); RED CELL DISTRIBUTION WIDTH 13.5 % (12.0-15.0); WHITE BLOOD COUNT 10.2 x10^3/uL (4.8-10.8)
[2022-10-28 19:53] LABS: ALBUMIN 4.7 g/dL (3.2-5.5); ALBUMIN/GLOBULIN RATIO 1.1 (1.0-2.2); BILIRUBIN,TOTAL 0.7 mg/dL (0.2-1.0); CALCIUM 10.1 mg/dL (8.5-10.3); CREATININE 0.8 mg/dL (0.4-1.0); TOTAL PROTEIN 9.1 g/dL (6.7-8.2)
[2022-10-28 19:53] LABS: BACTERIA,URINE Few /HPF (None Seen); RBC,URINE 0-5 /HPF (0-5); SQUAMOUS EPITHELIAL CELL,UR MOD Squamous (<= Few); WBC,URINE 0-3 /HPF (0-5)
[2022-10-28 19:54] LABS: AMORPHOUS SEDIMENT,UR Few /LPF; MUCUS,URINE Moderate Strands
--- NOTE | 2022-10-28 19:54 | ED Physician Documentation ---
PD HPI NVD - Stated complaint Stated Complaint: VOMITING - Chief complaint Chief Complaint: Abd Pain - History obtained from History obtained from: Patient - History of Present Illness Timing - details: Abrupt onset, Constant - Additonal information Additional information: HPI from patient. Patient complains of nausea and vomiting, sudden onset waking her from sleep at 5 AM today. Patient says she has not left her bathroom the entire day because she cannot stop having nausea with vomiting. She also notes waxing and waning generalized cramping abdominal pain, which she has had with previous episodes of these symptoms. Patient says she has had many similar previous such episodes, often requiring visits to the emergency department for symptom control, but she says the cause of these episodes has not been determined. Patient saw her primary care provider yesterday for "chest issues" (per patient). She says an outpatient chest x-ray was performed, and she was prescribed an MDI, 50 mg p.o. prednisone. Patient denies , but acknowledges this is a possibility. Review of Systems Constitutional: denies: Fever, Chills, Sweats Respiratory: reports: Reviewed and negative GI: reports: Abdominal Pain, Nausea, Vomiting. denies: Abdominal Swelling, Constipation, Diarrhea, Hematemesis, Bloody / black stool : denies: Dysuria, Frequency PD PAST MEDICAL HISTORY - Past Medical History Respiratory: Asthma - Past Surgical History Past Surgical History: No - Present Medications Home Medications: Ambulatory Orders Medication Instructions Recorded Confirmed Albuterol Sulf [Ventolin Hfa 1 - 2 puffs INH Q4HR PRN #1 inhaler 10/18/20 Inhaler] Ondansetron Odt [Zofran Odt] 4 mg TL Q6H PRN #14 tablet 10/28/22 - Allergies Allergies/Adverse Reactions: Allergies Allergy/AdvReac Type Severity Reaction Status Date / Time bee venom protein (honey bee) Allergy Anaphylaxis Verified 11/13/21 21:24 iodine Allergy Anaphylaxis Verified 01/09/21 19:33 Penicillins Allergy swelling Verified 01/09/21 19:33 shellfish derived Allergy Anaphylaxis Verified 07/08/21 08:30 clindamycin AdvReac Mild Nausea Verified 10/28/22 19:21 - Social History Does the pt smoke?: Yes Smoking Status: Current every day smoker Does the pt drink ETOH?: Yes Does the pt have substance abuse?: Yes - Immunizations Immunizations are current?: Yes Immunizations: TDAP >10years/unknown - POLST Patient has POLST: No PD ED PE NORMAL - Vitals Vital signs reviewed: Yes - General General: Alert and oriented X 3, No acute distress, Well developed/nourished - Cardiac Cardiac: RRR, No murmur - Respiratory Respiratory: No respiratory distress, Clear bilaterally - Abdomen Abdomen: Normal bowel sounds, Soft, Non tender, Non distended - Derm Derm: Normal color, Warm and dry Results - Vitals Vitals: Oxygen O2 Source Room air - Labs Labs: Laboratory Tests 10/28/22 10/28/22 10/28/22 19:26 19:26 19:34 WBC 10.2 RBC 5.13 Hgb 14.0 Hct 41.8 MCV 81.5 MCH 27.3 MCHC 33.5 RDW 13.5 Plt Count 312 MPV 11.0 H Neut # (Auto) 8.1 H Lymph # (Auto) 1.6 [place] # (Auto) 0.5 Eos # (Auto) 0.0 Baso # (Auto) 0.0 Absolute Nucleated RBC 0.00 Nucleated RBC % 0.0 Sodium 137 Potassium 4.0 Chloride 106 Carbon Dioxide 18 L Anion Gap 13.0 BUN 14 Creatinine 0.8 Estimated GFR (MDRD) 90 Glucose 138 H Calcium 10.1 Total Bilirubin 0.7 AST 26 ALT 28 Alkaline Phosphatase 69 Total Protein 9.1 H Albumin 4.7 Globulin 4.4 H Albumin/Globulin Ratio 1.1 Lipase 56 H Urine Color YELLOW Urine Clarity HAZY Urine pH 6.0 Ur Specific [place] >=1.030 H Urine Protein TRACE Urine Glucose (UA) NEGATIVE Urine Ketones 15 H Urine Occult Blood TRACE-INTA Urine Nitrite NEGATIVE Urine Bilirubin NEGATIVE Urine Urobilinogen 0.2 (NORMAL) Ur Leukocyte Esterase NEGATIVE Urine RBC 0-5 Urine WBC 0-3 Ur Squamous Epith Cells MOD Squamous H Amorphous Sediment Few Urine Bacteria Few Urine Mucus Moderate Strands Ur Microscopic Review INDICATED Urine Culture Comments NOT INDICATED Urine HCG, Qual 10/28/22 19:34 WBC RBC Hgb Hct MCV MCH MCHC RDW Plt Count MPV Neut # (Auto) Lymph # (Auto) [place] # (Auto) Eos # (Auto) Baso # (Auto) Absolute Nucleated RBC Nucleated RBC % Sodium Potassium Chloride Carbon Dioxide Anion Gap BUN Creatinine Estimated GFR (MDRD) Glucose Calcium Total Bilirubin AST ALT Alkaline Phosphatase Total Protein Albumin Globulin Albumin/Globulin Ratio Lipase Urine Color Urine Clarity Urine pH Ur Specific [place] Urine Protein Urine Glucose (UA) Urine Ketones Urine Occult Blood Urine Nitrite Urine Bilirubin Urine Urobilinogen Ur Leukocyte Esterase Urine RBC Urine WBC Ur Squamous Epith Cells Amorphous Sediment Urine Bacteria Urine Mucus Ur Microscopic Review Urine Culture Comments Urine HCG, Qual NEGATIVE PD Medical Decision Making - ED course Complexity details: reviewed old records (I looked at the images undertaken yesterday (chest x-ray performed in the outpatient setting [facility]), as well as the radiologist interpretation. There is no evidence of acute cardiopulmonary disease on yesterday's chest x-ray.), considered differential, d/w patient ED course: Patient presents with nausea and vomiting since 5 AM today with cramping abdominal pain. Patient says she has had many similar previous episodes although etiology is not determined with these previous episodes. Patient was given 1 L normal saline intravenously as well as 8 mg of [facility]an [facility]. She is also given 30 mg of Toradol intravenously for the abdominal discomfort. Tests undertaken in the emergency department included CBC, ER abdominal panel, urinalysis, urine hCG. There were no remarkable findings on any of these tests. Her urinalysis is concentrated with a specific gravity of 1.030 and 15 ketones are noted, otherwise unremarkable.Patient's urine hCG is negative. On reevaluation, after the above interventions and the tests resulted, patient i s in NAD; although she reports feeling significant improvement, she says she still feels some residual nausea and is asking for something else for this symptom. I have reviewed previous visits, I see that she was given droperidol on a previous visit with good results and thus she is dose with 2.5 mg droperidol intravenously.I reevaluated her after the droperidol had adequate time to take effect, and she reports near resolution of the nausea and is comfortable with discharge at this point. Departure - Departure Disposition: 01 Home, Self Care Clinical Impression: Nausea and vomiting Qualifiers: Vomiting type: unspecified Qualified Code(s): R11.2 - Nausea with vomiting, unspecified Condition: Good Instructions: ED Diet Vomiting Diarrhea, ED Nausea Vomiting Prescriptions: Ondansetron Odt [Zofran Odt] 4 mg TL Q6H PRN #14 tablet PRN Reason: Nausea / Vomiting Comments: There were no concerning or diagnostic findings on tonight's tests. You are given 2 different types of antinausea medications in the emergency department (ondansetron and droperidol). These seem to have improved your symptoms adequately. I have electronically submitted a prescription for ondansetron to the [facility] pharmacy in [place]. Follow-up with your primary care provider within the next 3 to 5 days if your symptoms have not resolved. Discharge Date/Time: 10/28/22 22:44
[2022-10-28 19:58] LABS: HCG UR QUAL NEGATIVE
[2022-10-28] MEDS ORDERED: KETOROLAC 30 MG/ML VIAL IVP STA (20:13)
[2022-10-28] MEDS ORDERED: ONDANSETRON 4 MG/2 ML VIAL IVP STA (20:13)
[2022-10-28] MEDS ORDERED: SODIUM CHLORIDE 0.9% 1,000 ML IV STA (20:13)
[2022-10-28] MEDS ORDERED: DROPERIDOL 5 MG/2 ML VIAL IVP STA (21:30)
[2022-10-28 22:26] VITALS: BP 136/67
== END 2022-10-28 22:44 | disposition home or self-care (01) ==
LOC: ED 18:53
DX: R11.2 Nausea with vomiting, unspecified (principal); F17.200 Nicotine dependence, unspecified, uncomplicated
CPT/HCPCS: 36415; 80053; 81001; 81003; 81025; 83690; 85025; 87086; 96374; 99284

== ENCOUNTER 2022-12-23 00:20 | Emergency (ER) | payer MEDICAID ==
--- NOTE | 2022-12-23 02:47 | ED Physician Documentation ---
PD HPI OPHTHO - Stated complaint Stated Complaint: RT EYE PX - Chief complaint Chief Complaint: Heent - History obtained from History obtained from: Patient - Additional information Additional information: 22-year-old woman presents with right eye swelling and pain late this evening after she thinks she got something in her eye. She flushed her eye with water and then came to the emergency department. Swelling and pain have improved since coming in. Review of Systems Eyes: reports: Irritation. denies: Loss of vision, Decreased vision, Photophobia, Discharge PD PAST MEDICAL HISTORY - Past Medical History Respiratory: Asthma - Past Surgical History Past Surgical History: No - Present Medications Home Medications: Ambulatory Orders Medication Instructions Recorded Confirmed Albuterol Sulf [Ventolin Hfa 1 - 2 puffs INH Q4HR PRN #1 inhaler 10/18/20 Inhaler] Ondansetron Odt [Zofran Odt] 4 mg TL Q6H PRN #14 tablet 10/28/22 Mineral Oil/Petrolatum,White 1 appful OP QPM 10 Days #3.5 gm 12/23/22 [Artificial Eye Lub 15-83% Oint] - Allergies Allergies/Adverse Reactions: Allergies Allergy/AdvReac Type Severity Reaction Status Date / Time bee venom protein (honey bee) Allergy Anaphylaxis Verified 11/13/21 21:24 iodine Allergy Anaphylaxis Verified 01/09/21 19:33 Penicillins Allergy swelling Verified 01/09/21 19:33 shellfish derived Allergy Anaphylaxis Verified 07/08/21 08:30 clindamycin AdvReac Mild Nausea Verified 10/28/22 19:21 - Social History Does the pt smoke?: Yes Smoking Status: Current every day smoker Does the pt drink ETOH?: Yes Does the pt have substance abuse?: Yes - Immunizations Immunizations are current?: Yes Immunizations: TDAP >10years/unknown - POLST Patient has POLST: No PD ED PE NORMAL - Vitals Vital signs reviewed: Yes - General General: Alert and oriented X 3, No acute distress, Well developed/nourished - HEENT HEENT: Atraumatic, PERRL, EOMI, Other (Fluorescein exam normal to R eye. no foreign bodies on eversion of lids. mild swelling of R upper eyelid) Results - Vitals Vitals: Vital Signs - 24 hr 12/23/22 01:24 Temperature 36.4 C L Heart Rate 95 Respiratory 17 Rate Blood Pressure 123/88 H O2 Saturation 97 Oxygen O2 Source Room air PD Medical Decision Making - ED course ED course: 22-year-old woman presents with right eye pain and swelling that self resolved since coming in. Visual acuity is normal. Her fluorescein eye exam uncovered no corneal abrasion. She has no foreign bodies in the eye. Return precautions were given. She will follow-up with her primary care provider. Lubricating eye ointment sent to pharmacy. Departure - Departure Disposition: Home, Self Care Clinical Impression: Pain, eye, right Condition: Good Instructions: Artificial Tears eye ointment Prescriptions: Mineral Oil/Petrolatum,White [Artificial Eye Lub 15-83% Oint] 1 appful OP QPM 10 Days #3.5 gm Comments: You were seen in the emergency department for eye pain and swelling. Your eye tests were normal. You should follow-up with your primary care provider and return to the emergency department if you have new or worsening symptoms or other concerns. Electronic prescription for lubricating eye ointment was sent to [facility] in [place].
[2022-12-23 03:01] VITALS: BP 114/85
== END 2022-12-23 03:00 | disposition home or self-care (01) ==
LOC: ED 00:20
DX: H57.11 Ocular pain, right eye (principal); F17.200 Nicotine dependence, unspecified, uncomplicated
CPT/HCPCS: 99282

== ENCOUNTER 2023-02-27 08:33 | Emergency (ER) | payer MEDICAID ==
[2023-02-27] MEDS ORDERED: SODIUM CHLORIDE 0.9% 1,000 ML IV STA ×4 (09:04→14:54)
[2023-02-27] MEDS ORDERED: ONDANSETRON 4 MG/2 ML VIAL IVP STA ×3 (09:04→13:08)
--- NOTE | 2023-02-27 09:15 | ED Physician Documentation ---
PD HPI NVD - Stated complaint Stated Complaint: VOMITING - Chief complaint Chief Complaint: General - History obtained from History obtained from: Patient, Family - History of Present Illness Timing - onset: How many weeks ago (1) Timing - duration: Weeks (1) Timing - details: Abrupt onset, Still present Associated symptoms: Abdominal pain Contributing factors: Other (early ) Improved by: Vomiting Worsened by: Eating Similar symptoms before: Diagnosis (hyperemesis gravidarium) Recently seen: Not recently seen - Additonal information Additional information: Snow Garza is a 22-year-old female who believes she may be 11 or 12 weeks who has developed vomiting over the past week. She has been unable to hold down food or water during that period of time. She does not have an OB as yet. She comes into the emergency department now with a rapid heart rate and shakiness. Review of Systems Constitutional: reports: Myalgias, Fatigue, Sweats. denies: Fever Eyes: denies: Photophobia Ears: denies: Ear pain Nose: denies: Rhinorrhea / runny nose, Congestion Throat: denies: Sore throat Cardiac: denies: Chest pain / pressure, Palpitations Respiratory: denies: Dyspnea, Cough GI: reports: Abdominal Pain, Nausea, Vomiting. denies: Constipation, Diarrhea : denies: Dysuria, Frequency Skin: denies: Rash Musculoskeletal: denies: Neck pain, Back pain, Extremity pain Neurologic: reports: Generalized weakness. 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 : None HEENT: None Psych: None Musculoskeletal: None Derm: None - Past Surgical History Past Surgical History: No - Present Medications Home Medications: Ambulatory Orders Medication Instructions Recorded Confirmed Albuterol Sulf [Ventolin Hfa 1 - 2 puffs INH Q4HR PRN #1 inhaler 10/18/20 02/27/23 Inhaler] Pnv No.95/Ferrous Fum/Folic AC 1 each PO DAILY 02/27/23 02/27/23 [ Tablet] haloperidoL [Haldol] 2 mg PO Q6HR PRN #12 tablet 02/27/23 - Allergies Allergies/Adverse Reactions: Allergies Allergy/AdvReac Type Severity Reaction Status Date / Time bee venom protein (honey bee) Allergy Anaphylaxis Verified 02/27/23 08:39 iodine Allergy Anaphylaxis Verified 02/27/23 08:39 Penicillins Allergy swelling Verified 02/27/23 08:39 shellfish derived Allergy Anaphylaxis Verified 02/27/23 08:39 clindamycin AdvReac Mild Nausea Verified 02/27/23 08:39 - Social History Does the pt smoke?: No Smoking Status: Former smoker Does the pt drink ETOH?: No Does the pt have substance abuse?: Yes - Immunizations Immunizations are current?: Yes Immunizations: TDAP >10years/unknown - POLST Patient has POLST: No PD ED PE NORMAL - Vitals Vital signs reviewed: Yes (tachy ) - General General: Alert and oriented X 3, Well developed/nourished, Other (shiverring and shaking in the bed appears anxious and in tears) - HEENT HEENT: Atraumatic, PERRL - Neck Neck: Supple, no meningeal sign, No bony TTP - Cardiac Cardiac: No murmur, Other (tachy to 120) - Respiratory Respiratory: No respiratory distress, Clear bilaterally - Abdomen Abdomen: Normal bowel sounds, Soft, Non tender, Non distended, No organomegaly - Back Back: No CVA TTP, No spinal TTP - Derm Derm: Normal color, Warm and dry, No rash - Extremities Extremities: No deformity, No edema - Neuro Neuro: Alert and oriented X 3, welfare director 2-12 intact, No motor deficit, No sensory deficit, Normal speech Eye Opening: Spontaneous Motor: Obeys Commands Verbal: Oriented GCS Score: 15 - Psych Psych: Normal mood, Normal affect Results - Vitals Vitals: Vital Signs - 24 hr 02/27/23 02/27/23 02/27/23 08:39 10:24 11:17 Temperature 36.4 C L Heart Rate 127 H 98 109 H Respiratory 18 16 16 Rate Blood Pressure 106/66 103/68 116/74 O2 Saturation 98 99 100 02/27/23 02/27/23 13:19 16:12 Temperature Heart Rate 92 101 H Respiratory 16 18 Rate Blood Pressure 121/75 105/68 O2 Saturation 99 98 Oxygen O2 Source Room air - Labs Labs: Laboratory Tests 02/27/23 02/27/23 02/27/23 08:50 08:50 08:50 WBC 14.0 H RBC 5.99 H Hgb 16.4 H Hct 47.4 H MCV 79.1 L MCH 27.4 MCHC 34.6 RDW 13.2 Plt Count 368 MPV 11.4 H Neut # (Auto) 11.2 H Lymph # (Auto) 1.5 [place] # (Auto) 1.2 H Eos # (Auto) 0.0 Baso # (Auto) 0.0 Absolute Nucleated RBC 0.00 Nucleated RBC % 0.0 Sodium 130 L Potassium 2.6 L Chloride 86 L Carbon Dioxide 28 Anion Gap 16.0 H BUN 23 H Creatinine 0.8 Estimated GFR (MDRD) 89 Glucose 115 H Calcium 9.5 Magnesium Total Bilirubin 1.1 H AST 24 ALT 39 Alkaline Phosphatase 67 Total Protein 9.2 H Albumin 4.9 Globulin 4.3 H Albumin/Globulin Ratio 1.1 Lipase 100 H HCG, Quant 31846.00 02/27/23 02/27/23 08:50 16:12 WBC RBC Hgb Hct MCV MCH MCHC RDW Plt Count MPV Neut # (Auto) Lymph # (Auto) [place] # (Auto) Eos # (Auto) Baso # (Auto) Absolute Nucleated RBC Nucleated RBC % Sodium 132 L Potassium 3.4 L Chloride 102 Carbon Dioxide 20 L Anion Gap 10.0 BUN 13 Creatinine 0.6 Estimated GFR (MDRD) 124 Glucose 92 Calcium 7.4 L Magnesium 2.3 Total Bilirubin AST ALT Alkaline Phosphatase Total Protein Albumin Globulin Albumin/Globulin Ratio Lipase HCG, Quant - Rads (name of study) ob ultrasound Relevant Findings:: Prelim report reviewed (Impression: single live intrauterine . Small amount of fluid in the cervix.), EMP independent interpretation of test Procedures - Bedside sono Bedside sono by EMP: a gestational sac is evident in the uterus without pole with POCUS. - IVC sono (time) 0910 Bedside IVC sono: IVC measures (cm) (0.65), Profound dehydration (est 3 liter deficit) PD Medical Decision Making - ED course Complexity details: reviewed old records, reviewed results, re-evaluated patient, considered differential, d/w patient Reviewed Lab Results: We reviewed a complete blood count showing an elevated white blood count cell count of 14,000 and elevated hemoglobin and hematocrit at 16.4 and 47.4 with normal platelets. These results of hemoglobin and hematocrit are above normal for the patient her normal is 14 for hemoglobin and 41 for hematocrit. Her chemistries are remarkable for a low serum sodium at 130 the patient usually runs normal values her potassium is low at 2.6 she normally runs at 4. BUN is elevated at 23 normally in the 14-16 range. Kidney function otherwise with a normal creatinine of 0.8. Liver function normal. Quantitative hCG 63,055. My interpretation of these laboratory results with multiple abnormalities are that they signify a significant amount of dehydration. She has concentration of her blood elevating her hemoglobin and hematocrit, she has elevation in her BUN out of proportion to the creatinine consistent with dehydration. She has low sodium and potassium consistent with excessive fluid loss supporting the diagnosis of dehydration. She appears to be with an elevated hCG. It appears the vomiting is related to a . We obtained a formal ultrasound of the pelvis to discover a 6-week intrauterine . ED course: 22-year-old female presents to the emergency department with hyperemesis gravidarum and she is profoundly dehydrated. She is not in the range of desiccation encephalopathy. She has a 6.5 mm vessel with POCUS. She has a deficit of nearly 3 L. A saline infusion is begun when she arrives and she is administered Zofran. She has some improvement in her nausea. She has a low potassium and this is replaced orally and IV. The oral replacement resulted in further vomiting. After 2-1/2 L of fluid in the patient is able to stand at the side of the bed. She still has nausea and still has further vomiting. She indicates her prior was terminated because of hyperemesis. She is considering terminating this because of this condition. I contacted our OPTICAL ENGINEERING TECHNICIAN. Dr. Nicholas will come to the emergency department and evaluate the patient. The patient continues to be symptomatic with nausea and a third dose of Zofran is not helping. Arrangements are made for admission to the hospital and the OPTICAL ENGINEERING TECHNICIAN doctor is managing the patient. The patient requested a different medication for nausea and she was administered Inapsine. She had complete relief with this. I inquired about her cannabis use and she replied in the affirmative. She spent about the first 3 days of this vomiting episode in the bathtub as this was the only relief she got. 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 We will discharge her with haldol for nausea. Departure - Departure Disposition: 01 Home, Self Care Clinical Impression: Hyperemesis gravidarum, Hypokalemia, Hyponatremia, Dehydration, Early stage of Condition: Serious Instructions: ED Dehydration, ED Diet Vomiting Diarrhea, ED Preg Morning Sickness, ED Potassium Deficiency Follow-Up: Ivy Torres ARNP [Primary Care Provider] - Romelia Lemons MD [Provider Admit Priv/Credential] - Prescriptions: haloperidoL [Haldol] 2 mg PO Q6HR PRN #12 tablet PRN Reason: vomiting Comments: Jamila today it looks like you have had excessive vomiting for the past week and you are . You were profoundly dehydrated and your potassium was low. This may be related to your but your response to the antidote for cannabis hyperemesis is typical of cannabis hyperemesis. Your ability to get relief with a warm bath is also a significant part of the history as this also indicates cannabis hyperemesis. Cannabis hyperemesis can cause uncontrolled vomiting that does not respond to our typical nausea medicine like Zofran. We have to use a different medicine for an antidote. The medicine we gave you today was Inapsine and that is not available in a an oral form. We have haldol as an oral alternative. In the first trimester of Haldol is the antipsychotic recommended as there is the most experience with it. We are using this for nausea control and you can take 1 to 2 mg as often as every 6 hours if needed. this medication has been escribed to the [facility] in [place]. The addition of Benadryl is helpful as sometimes this medicine can cause some abnormal movements of your face. We are expecting that you will need this for several days but not longer. Follow up with OB in their clinic this coming Wednesday. Your potassium is now nearly normal at 3.4 (3.5 is the normal) Discharge Date/Time: 02/27/23 16:40
[2023-02-27 09:36] LABS: BASOPHILS % (AUTO) 0.1 %; HCT - HEMATOCRIT 47.4 % (37.0-47.0); HGB - HEMOGLOBIN 16.4 g/dL (12.0-16.0); LYMPHOCYTES # (AUTO) 1.5 10^3/uL (1.5-3.5); LYMPHOCYTES % (AUTO) 10.9 %; MEAN CORPUSCULAR HEMOGLOBIN 27.4 pg (27.0-31.0); MEAN CORPUSCULAR HGB CONC 34.6 g/dL (32.0-36.0); MEAN CORPUSCULAR VOLUME 79.1 fL (81.0-99.0); MEAN PLATELET VOLUME 11.4 fL (7.9-10.8); MONOCYTES # (AUTO) 1.2 10^3/uL (0.0-1.0); MONOCYTES % (AUTO) 8.5 %; NEUTROPHILS # (AUTO) 11.2 10^3/uL (1.5-6.6); NEUTROPHILS % (AUTO) 80.1 %; PLT - PLATELET COUNT 368 10^3/uL (130-450); RED BLOOD COUNT 5.99 10^6/uL (4.20-5.40); RED CELL DISTRIBUTION WIDTH 13.2 % (12.0-15.0)
[2023-02-27 09:52] LABS: ALBUMIN 4.9 g/dL (3.2-5.5); ALBUMIN/GLOBULIN RATIO 1.1 (1.0-2.2); BILIRUBIN,TOTAL 1.1 mg/dL (0.2-1.0); CALCIUM 9.5 mg/dL (8.5-10.3); CREATININE 0.8 mg/dL (0.4-1.0); POTASSIUM 2.6 mmol/L (3.5-5.0); TOTAL PROTEIN 9.2 g/dL (6.7-8.2)
[2023-02-27] MEDS ORDERED: POTASSIUM BICARB 25 MEQ TABLET PO STA (09:56)
[2023-02-27] MEDS ORDERED: POTASSIUM CHLOR 10 MEQ/100 ML 10 MEQ/100 ML BAG IV STA (09:57)
--- NOTE | 2023-02-27 11:22 | Ultrasound Report ---
PROCEDURE: OB First Trimester INDICATIONS: pain and hyperemesis OUTSIDE/PRIOR DATING DATA: Last menstrual period (LMP): 11/17/2022. LMP-based estimated date of delivery (PAMELA): 08/24/2023. First dating scan (date and location): 02/27/2023. Estimated date of delivery (PAMELA) from first dating scan: 10/23/2023. TECHNIQUE: Real-time scanning was performed of the fetus and maternal pelvic organs, with image documentation. COMPARISON: None FINDINGS: Intrauterine gestational sac present. Embryo: Mean gestational sac diameter 1.6 cm: 6 weeks 3 days. [place]-rump length 0.34 cm: 6 weeks 0 d ays. Heart rate: 116 bpm. Other: No perigestational fluid collection. Measurement variability in dating: +/- 4 weeks by LMP, +/- 7 days by mean sac diameter (use before 6 weeks gestation if crown-rump length not able to be measured), +/- 5 days by crown-rump length (6-12 weeks gestation). Maternal organs: Ovaries demonstrate a right corpus luteal cyst measuring 2 cm. Fluid is seen within the cervix. No subchorionic hemorrhage. IMPRESSION: 1. Single live intrauterine . 2. Small amount of fluid in the cervix. Reviewed by: Mark Stein on 02/27/2023 10:20 AM ANNALISA Approved by: Mark Stein on 02/27/2023 10:20 AM ANNALISA Station ID: [id number]
[2023-02-27] MEDS ORDERED: POTASSIUM CHLOR 10 MEQ/100 ML 10 MEQ/100 ML BAG IV ONE ×2 (12:36→14:54)
[2023-02-27] MEDS ORDERED: DROPERIDOL 5 MG/2 ML VIAL IVP STA (14:53)
[2023-02-27] MEDS ORDERED: SODIUM CHLORIDE FLUSH 0.9% 10 ML SYRINGE IVP PRN (15:08)
[2023-02-27] MEDS ORDERED: SCOPOLAMINE PATCH TOP PRN (15:15)
[2023-02-27] MEDS ORDERED: METOCLOPRAMIDE 10 MG/2 ML VIAL IVP PRN (15:16)
--- NOTE | 2023-02-27 15:25 | HISTORY & PHYSICAL EXAMINATION ---
HPI - History Obtained From History obtained from: Patient Exam limitations: No limitations - History of Present Illness HPI Comment/Other: severe n.v of early . here with her partner. unable to eat or drink anything for a week she states. K+ is only 2.6 upon arrival. really miserable. wants to terminate her . happened last year with her also. 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 : positive: None HEENT: positive: None Psych: positive: None Musculoskeletal: positive: None Derm: positive: None MRSA Hx?: No Social & Family Hx - Social History Does the pt smoke?: No Smoking Status: Former smoker Does the pt drink ETOH?: No Does the pt have substance abuse?: Yes - POLST Patient has POLST: No Meds/Allgy - Home Medications Home Medications: Ambulatory Orders Medication Instructions Recorded Confirmed Albuterol Sulf [Ventolin Hfa 1 - 2 puffs INH Q4HR PRN #1 inhaler 10/18/20 02/27/23 Inhaler] Pnv No.95/Ferrous Fum/Folic AC 1 each PO DAILY 02/27/23 02/27/23 [ Tablet] - Allergies Allergies/Adverse Reactions: Allergies Allergy/AdvReac Type Severity Reaction Status Date / Time bee venom protein (honey bee) Allergy Anaphylaxis Verified 02/27/23 08:39 iodine Allergy Anaphylaxis Verified 02/27/23 08:39 Penicillins Allergy swelling Verified 02/27/23 08:39 shellfish derived Allergy Anaphylaxis Verified 02/27/23 08:39 clindamycin AdvReac Mild Nausea Verified 02/27/23 08:39 Review of Systems - Constitutional Constitutional: reports: Weakness, Poor appetite - Cardiovascular Cariovascular: reports: Lightheadedness Exam - Vital Signs Vital Signs: Vital Signs x48h Temp Pulse Resp BP Pulse Ox 02/27/23 13:19 92 16 121/75 99 02/27/23 11:17 109 H 16 116/74 100 02/27/23 10:24 98 16 103/68 99 02/27/23 08:39 97.5 F L 127 H 18 106/66 98 - Physical Exam General Appearance: positive: Alert, Moderate distress Eyes Bilateral: positive: Normal inspection Neck: positive: Nml inspection Respiratory: positive: No respiratory distress Cardiovascular: positive: Regular rate & rhythm Neurologic/Psychiatric: positive: Oriented x3 Results - Lab Results Fish Bones: 02/27/23 08:50 02/27/23 08:50 Other Lab Results: Lab Results x24hrs 02/27/23 02/27/23 02/27/23 Range/Units 08:50 08:50 08:50 WBC (4.8-10.8) x10^3/uL RBC (4.20-5.40) 10^6/uL Hgb (12.0-16.0) g/dL Hct (37.0-47.0) % MCV (81.0-99.0) fL MCH (27.0-31.0) pg MCHC (32.0-36.0) g/dL RDW (12.0-15.0) % Plt Count (130-450) 10^3/uL MPV (7.9-10.8) fL Neut # (Auto) (1.5-6.6) 10^3/uL Lymph # (Auto) (1.5-3.5) 10^3/uL Pepin # (Auto) (0.0-1.0) 10^3/uL Eos # (Auto) (0.0-0.7) 10^3/uL Baso # (Auto) (0.0-0.1) 10^3/uL Absolute Nucleated RBC x10^3/uL Nucleated RBC % /100WBC Sodium 130 L (135-145) mmol/L Potassium 2.6 L (3.5-5.0) mmol/L Chloride 86 L (101-111) mmol/L Carbon Dioxide 28 (21-32) mmol/L Anion Gap 16.0 H (6-13) BUN 23 H (6-20) mg/dL Creatinine 0.8 (0.4-1.0) mg/dL Estimated GFR (MDRD) 89 (>89) Glucose 115 H (70-100) mg/dL Calcium 9.5 (8.5-10.3) mg/dL Magnesium 2.3 (1.7-2.8) mg/dL Total Bilirubin 1.1 H (0.2-1.0) mg/dL AST 24 (10-42) IU/L ALT 39 (10-60) IU/L Alkaline Phosphatase 67 (42-121) IU/L Total Protein 9.2 H (6.7-8.2) g/dL Albumin 4.9 (3.2-5.5) g/dL Globulin 4.3 H (2.1-4.2) g/dL Albumin/Globulin Ratio 1.1 (1.0-2.2) Lipase 100 H (22-51) U/L HCG, Quant 99961.00 mIU/mL 02/27/23 Range/Units 08:50 WBC 14.0 H (4.8-10.8) x10^3/uL RBC 5.99 H (4.20-5.40) 10^6/uL Hgb 16.4 H (12.0-16.0) g/dL Hct 47.4 H (37.0-47.0) % MCV 79.1 L (81.0-99.0) fL MCH 27.4 (27.0-31.0) pg MCHC 34.6 (32.0-36.0) g/dL RDW 13.2 (12.0-15.0) % Plt Count 368 (130-450) 10^3/uL MPV 11.4 H (7.9-10.8) fL Neut # (Auto) 11.2 H (1.5-6.6) 10^3/uL Lymph # (Auto) 1.5 (1.5-3.5) 10^3/uL Pepin # (Auto) 1.2 H (0.0-1.0) 10^3/uL Eos # (Auto) 0.0 (0.0-0.7) 10^3/uL Baso # (Auto) 0.0 (0.0-0.1) 10^3/uL Absolute Nucleated RBC 0.00 x10^3/uL Nucleated RBC % 0.0 /100WBC Sodium (135-145) mmol/L Potassium (3.5-5.0) mmol/L Chloride (101-111) mmol/L Carbon Dioxide (21-32) mmol/L Anion Gap (6-13) BUN (6-20) mg/dL Creatinine (0.4-1.0) mg/dL Estimated GFR (MDRD) (>89) Glucose (70-100) mg/dL Calcium (8.5-10.3) mg/dL Magnesium (1.7-2.8) mg/dL Total Bilirubin (0.2-1.0) mg/dL AST (10-42) IU/L ALT (10-60) IU/L Alkaline Phosphatase (42-121) IU/L Total Protein (6.7-8.2) g/dL Albumin (3.2-5.5) g/dL Globulin (2.1-4.2) g/dL Albumin/Globulin Ratio (1.0-2.2) Lipase (22-51) U/L HCG, Quant mIU/mL Impression/Plan - Problem List Problem List: hyperemesis of early with significant electrolyte abnromality. admit for obs, correct electrolytes, contemplate termination in OR in am. patient says that she is sure that she does not want to carry this . medication given to try to help her feel better. including inapsine, reglan, scopolomine.
[2023-02-27] MEDS ORDERED: D5.45NS W/20 MEQ KCL 1,000 ML IV SCH (16:00)
[2023-02-27 16:15] VITALS: BP 105/68
[2023-02-27 16:30] LABS: CALCIUM 7.4 mg/dL (8.5-10.3); CREATININE 0.6 mg/dL (0.4-1.0); POTASSIUM 3.4 mmol/L (3.5-5.0)
[2023-02-27] MEDS ORDERED: SODIUM CHLORIDE FLUSH 0.9% 10 ML SYRINGE IVP SCH (17:00)
[2023-02-28] MEDS ORDERED: PRENATAL VITAMIN TABLET PO SCH (08:00)
== END 2023-02-27 16:40 | disposition home or self-care (01) ==
LOC: ED 08:33
DX: O21.1 Hyperemesis gravidarum with metabolic disturbance (principal); Z3A.01 Less than 8 weeks gestation of pregnancy
CPT/HCPCS: 36415; 76801; 80048; 80053; 83690; 83735; 84702; 85025; 96361; 96365; 96366; 96375; 96376; 99284; A9270

== ENCOUNTER 2023-03-03 14:07 | Outpatient (CLI) | payer MEDICAID | END 2023-03-03 14:08 | disposition home or self-care (01) | LOC: LAB.N 14:07 | PROVIDERS: ATTEND Obstetrics & Gynecology | DX: Z33.2 Encounter for elective termination of pregnancy (principal) | CPT/HCPCS: 86850; 86900; 86901 ==

== ENCOUNTER 2023-06-02 09:21 | Outpatient (CLI) | payer MEDICAID | END 2023-06-02 09:22 | disposition home or self-care (01) | LOC: LAB 09:21 | PROVIDERS: ATTEND Nurse Practitioner | DX: Z32.00 Encounter for pregnancy test, result unknown (principal) | CPT/HCPCS: 36415; 84702 ==

== ENCOUNTER 2023-11-18 14:50 | Emergency (ER) | payer MEDICAID ==
[2023-11-18] MEDS: ONDANSETRON ODT 4 MG TABLET TL STA (15:10)
[2023-11-18 15:22] LABS: BILIRUBIN,URINE NEGATIVE (NEGATIVE); GLUCOSE, URINE (UA) NEGATIVE (NEGATIVE); KETONES,URINE (UA) 40 mg/dL (NEGATIVE); LEUKOCYTE ESTERASE, URINE NEGATIVE (NEGATIVE); NITRITE,URINE NEGATIVE (NEGATIVE); OCCULT BLOOD,URINE TRACE-INTA (NEGATIVE); PROTEIN,URINE TRACE mg/dL (NEGATIVE); UROBILINOGEN,URINE 0.2 (NORMAL) E.U./dL (NORMAL)
[2023-11-18 15:22] LABS: HCT - HEMATOCRIT 40.8 % (37.0-47.0); HGB - HEMOGLOBIN 13.6 g/dL (12.0-16.0); LYMPHOCYTES # (AUTO) 1.1 10^3/uL (1.5-3.5); LYMPHOCYTES % (AUTO) 17.5 %; MEAN CORPUSCULAR HEMOGLOBIN 26.2 pg (27.0-31.0); MEAN CORPUSCULAR HGB CONC 33.3 g/dL (32.0-36.0); MEAN CORPUSCULAR VOLUME 78.6 fL (81.0-99.0); MEAN PLATELET VOLUME 10.6 fL (7.9-10.8); MONOCYTES # (AUTO) 0.3 10^3/uL (0.0-1.0); MONOCYTES % (AUTO) 4.6 %; NEUTROPHILS # (AUTO) 4.9 10^3/uL (1.5-6.6); NEUTROPHILS % (AUTO) 77.4 %; PLT - PLATELET COUNT 283 10^3/uL (130-450); RED BLOOD COUNT 5.19 10^6/uL (4.20-5.40); RED CELL DISTRIBUTION WIDTH 14.6 % (12.0-15.0); WHITE BLOOD COUNT 6.3 x10^3/uL (4.8-10.8)
[2023-11-18 15:25] LABS: HCG UR QUAL NEGATIVE
[2023-11-18 15:26] LABS: CLARITY,URINE HAZY (CLEAR)
--- NOTE | 2023-11-18 15:31 | ED Physician Documentation ---
PD HPI ABD PAIN - Stated complaint Stated Complaint: N/V, - Chief complaint Chief Complaint: Abd Pain - History obtained from History obtained from: Patient - Additional information Additional information: 23-year-old woman with history of asthma, no history of abdominal surgeries presents with her fianc for the evaluation of abdominal pain and vomiting. She says because she has been nauseous for couple days but became quite nauseous and started vomiting with diffuse abdominal pain that is severe at 3 AM this morning. She says it feels like there is an electric buzzer in her abdomen. No changes in bowel movements. No fevers. 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 : None HEENT: None Psych: None Musculoskeletal: None Derm: None - Past Surgical History Past Surgical History: No - Present Medications Home Medications: Ambulatory Orders Medication Instructions Recorded Confirmed Albuterol Sulf [Ventolin Hfa 1 - 2 puffs INH Q4HR PRN #1 inhaler 10/18/20 11/18/23 Inhaler] Pnv No.95/Ferrous Fum/Folic AC 1 each PO DAILY 02/27/23 02/27/23 [ Tablet] haloperidoL [Haldol] 2 mg PO Q6HR PRN #12 tablet 02/27/23 11/18/23 HYDROcod/ACETAM 5/325 [[place] 5/325] 1 - 2 tab PO Q6H PRN #10 tablet 11/18/23 Metoclopramide [Reglan] 10 mg PO Q6H PRN #20 tablet 11/18/23 Nebulizer 1 each MC PRN PRN 11/18/23 11/18/23 - Allergies Allergies/Adverse Reactions: Allergies Allergy/AdvReac Type Severity Reaction Status Date / Time bee venom protein (honey bee) Allergy Anaphylaxis Verified 11/18/23 15:01 iodine Allergy Anaphylaxis Verified 11/18/23 15:01 Penicillins Allergy swelling Verified 11/18/23 15:01 shellfish derived Allergy Anaphylaxis Verified 11/18/23 15:01 clindamycin AdvReac Mild Nausea Verified 11/18/23 15:01 - Social History Does the pt smoke?: No Smoking Status: Never smoker Does the pt drink ETOH?: No Does the pt have substance abuse?: Yes - Immunizations Immunizations are current?: Yes Immunizations: TDAP >10years/unknown - POLST Patient has POLST: No PD ED PE NORMAL - Vitals Vital signs reviewed: Yes - General General: Alert and oriented X 3, Other (She does appear to be in pain) - Abdomen Abdomen: Other (Moderate diffuse tenderness most marked in the left upper quadrant without surgical signs. Patient not tolerating exam well.) - Derm Derm: Normal color, Warm and dry - Neuro Neuro: Alert and oriented X 3, Normal speech - Psych Psych: Normal affect Results - Vitals Vitals: Vital Signs - 24 hr 11/18/23 11/18/23 11/18/23 14:52 16:28 16:29 Temperature 36.4 C L Heart Rate 86 77 Respiratory 16 15 Rate Blood Pressure 111/75 104/57 L O2 Saturation 97 99 If not protocol 2 : Oxygen Flow, liters/minute Oxygen O2 Source Room air - Labs Labs: Laboratory Tests 11/18/23 11/18/23 11/18/23 14:57 15:15 15:15 WBC 6.3 RBC 5.19 Hgb 13.6 Hct 40.8 MCV 78.6 L MCH 26.2 L MCHC 33.3 RDW 14.6 Plt Count 283 MPV 10.6 Neut # (Auto) 4.9 Lymph # (Auto) 1.1 L [place] # (Auto) 0.3 Eos # (Auto) 0.0 Baso # (Auto) 0.0 Absolute Nucleated RBC 0.00 Nucleated RBC % 0.0 Sodium 138 Potassium 3.4 L Chloride 103 Carbon Dioxide 24 Anion Gap 11.0 BUN 21 H Creatinine 0.8 Estimated GFR (MDRD) 88 L Glucose 125 H Calcium 10.3 Total Bilirubin 0.5 AST 18 ALT 21 Alkaline Phosphatase 68 Total Protein 8.5 Albumin 5.0 Globulin 3.5 Albumin/Globulin Ratio 1.4 Lipase 51 Urine Color YELLOW Urine Clarity HAZY Urine pH 6.0 Ur Specific [place] >=1.030 H Urine Protein TRACE Urine Glucose (UA) NEGATIVE Urine Ketones 40 H Urine Occult Blood TRACE-INTA Urine Nitrite NEGATIVE Urine Bilirubin NEGATIVE Urine Urobilinogen 0.2 (NORMAL) Ur Leukocyte Esterase NEGATIVE Urine RBC 0-5 Urine WBC 4-5 Ur Squamous Epith Cells FEW Squamous Amorphous Sediment Few Urine Bacteria Few Urine Mucus Moderate Strands Ur Microscopic Review INDICATED Urine Culture Comments NOT INDICATED Urine HCG, Qual 11/18/23 15:15 WBC RBC Hgb Hct MCV MCH MCHC RDW Plt Count MPV Neut # (Auto) Lymph # (Auto) [place] # (Auto) Eos # (Auto) Baso # (Auto) Absolute Nucleated RBC Nucleated RBC % Sodium Potassium Chloride Carbon Dioxide Anion Gap BUN Creatinine Estimated GFR (MDRD) Glucose Calcium Total Bilirubin AST ALT Alkaline Phosphatase Total Protein Albumin Globulin Albumin/Globulin Ratio Lipase Urine Color Urine Clarity Urine pH Ur Specific [place] Urine Protein Urine Glucose (UA) Urine Ketones Urine Occult Blood Urine Nitrite Urine Bilirubin Urine Urobilinogen Ur Leukocyte Esterase Urine RBC Urine WBC Ur Squamous Epith Cells Amorphous Sediment Urine Bacteria Urine Mucus Ur Microscopic Review Urine Culture Comments Urine HCG, Qual NEGATIVE - Rads (name of study) CT A/P Relevant Findings:: Final report received, EMP independent interpretation of test PD Medical Decision Making - ED course ED course: 23-year-old woman presents for the evaluation of new abdominal pain with vomiting. Differential diagnosis includes appendicitis, gallbladder disease, diverticulitis, related issue. After initial treatment with Dilaudid and Toradol and Reglan she was feeling much better and did not need repeat dosing while in the emergency department. Workup demonstrates unremarkable CBC, unremarkable CMP, normal urinalysis and negative test as well as negative CT. At this point she has nonspecific abdominal pain and was given close return precautions. Departure - Departure Disposition: 01 Home, Self Care Clinical Impression: Abdominal pain Qualifiers: Abdominal location: generalized Qualified Code(s): R10.84 - Generalized abdominal pain Condition: Good Record reviewed to determine appropriate education?: Yes Instructions: ED Abdominal Pain Female Non-Specific Abdominal Pain Prescriptions: HYDROcod/ACETAM 5/325 [[place] 5/325] 1 - 2 tab PO Q6H PRN #10 tablet PRN Reason: Pain Metoclopramide [Reglan] 10 mg PO Q6H PRN #20 tablet PRN Reason: nausea or headache Comments: The cause of your abdominal pain is not clear, your labs and CAT scan were normal. You are not . I sent a prescription electronically for pain and nausea medication to [facility] in [place]. Return Wednesday morning if not improved, anytime for new or worsening symptoms. I am prescribing a short course of narcotic pain medication for you. These are potentially dangerous and addictive medications that should be used carefully. These medications may constipate you. Take an [id number] stool softener (docusate) twice daily with plenty of water while taking these medications. If you go 24 hours without a bowel movement, take [id number] miralax, per package instructions. Do not drink or drive while taking these medications. If you received narcotic or sedating medications while in the emergency department, do not drive for 24 hours. Store this medication in a safe, secure place and out of reach of children. It is a violation of federal law to give or sell this medication to another person or to use in a manner other than prescribed. The ED will not refill narcotic prescriptions, including prescriptions lost or stolen. To dispose of unwanted medications: 1. [facility] provides a drop box for medication in pill form only (no liquids) 8:00 am to 4:30 p.m. Wednesday-Wednesday in the lobby of the [facility], [address] [place] [address]. Empty pills into ziplock bag before disposal. Call [phone] for information. 2.[employer] is a free service available to all [facility] residents. Go to [email or web address] Note that many narcotic pain relievers also contain Tylenol/acetaminophen. Please ensure that your total dose of acetaminophen from all sources does not exceed 3 g (3000 mg) per day. Forms: PCP List
[2023-11-18 15:39] LABS: AMORPHOUS SEDIMENT,UR Few /LPF; BACTERIA,URINE Few /HPF (None Seen); MUCUS,URINE Moderate Strands; RBC,URINE 0-5 /HPF (0-5); SQUAMOUS EPITHELIAL CELL,UR FEW Squamous (<= Few)
[2023-11-18 15:42] LABS: ALBUMIN/GLOBULIN RATIO 1.4 (1.0-2.2); BILIRUBIN,TOTAL 0.5 mg/dL (0.2-1.0); CALCIUM 10.3 mg/dL (8.5-10.3); CREATININE 0.8 mg/dL (0.6-1.3); POTASSIUM 3.4 mmol/L (3.5-4.5); TOTAL PROTEIN 8.5 g/dL (6.4-8.9)
[2023-11-18] MEDS: SODIUM CHLORIDE 0.9% 1,000 ML IV STA (15:50)
[2023-11-18] MEDS: KETOROLAC 15 MG/ML VIAL IVP STA (15:55)
[2023-11-18] MEDS: HYDROmorphone 1 MG/ML CARPUJECT IVP STA (16:00)
[2023-11-18] MEDS: METOCLOPRAMIDE 10 MG/2 ML VIAL IVP STA (16:09)
[2023-11-18] MEDS ORDERED: iohexoL-300 100 ML VIAL ONE (16:24)
--- NOTE | 2023-11-18 17:39 | CT Report ---
PROCEDURE: Abdomen/Pelvis W INDICATIONS: IV only, abd pain CONTRAST: Omni 300 100ml TECHNIQUE: After the administration of intravenous contrast, a CT scan of the abdomen and pelvis was performed. Images were recorded and evaluated at appropriate window settings. Reformats: coronal and sagittal. F or radiation dose reduction, the following was used: automated exposure control, adjustment of mA and /or kV according to patient size. COMPARISON: CT 01/09/2021. FINDINGS: Image quality: Diagnostic. Lower chest: Unremarkable. Liver: No solid mass. Gallbladder and biliary tree: Gallbladder sludge versus small stones. No wall thickening. No biliary dilation. Spleen: No splenomegaly. Pancreas: No pancreatic ductal dilation. Adrenals: No adrenal nodule. Kidneys and ureters: No hydronephrosis. No renal cystic lesion which requires follow up. No solid mas s. Stomach, bowel and peritoneum: No bowel distension. No pathologic free fluid. Diverticulosis without evidence of diverticulitis. Normal appendix. Lymph nodes: No central or retroperitoneal adenopathy. Vessels: No infrarenal aortic aneurysm. PELVIS Reproductive organs: Unremarkable. Bladder: No abnormal wall thickening, accounting for underdistention. Pelvic lymph nodes: No pelvic adenopathy by size criteria. Bones: No aggressive osseous abnormality. Other: No significant ventral or inguinal hernia. IMPRESSION: No acute abnormality. Colonic diverticulosis without evidence of diverticulitis. Normal appendix. No nephrolithiasis and no gallbladder pathology. Reviewed by: Driss Wolfe MD on 11/18/2023 5:38 PM PDT Approved by: Driss Wolfe MD on 11/18/2023 5:38 PM PDT Station ID: [id number]
[2023-11-18 18:15] VITALS: BP 111/64; O2SAT 91
[2023-11-18] MEDS: iohexoL-300 100 ML VIAL IVP ONE (21:09)
== END 2023-11-18 18:06 | disposition home or self-care (01) ==
LOC: ED 14:50
DX: R10.84 Generalized abdominal pain (principal); R11.2 Nausea with vomiting, unspecified
CPT/HCPCS: 36415; 74177; 80053; 81001; 81025; 83690; 85025; 96374; 96375; 99284; 99285; J1170; J2765; Q0162; Q9967; 81003; 87086

== ENCOUNTER 2023-11-20 07:15 | Emergency (ER) | payer MEDICAID ==
--- NOTE | 2023-11-20 07:54 | ED Physician Documentation ---
PD HPI NVD - Stated complaint Stated Complaint: VOMITING - Chief complaint Chief Complaint: Abd Pain - History obtained from History obtained from: Patient, Family - History of Present Illness Timing - onset: How many days ago (4) Timing - duration: Days (4) Timing - details: Gradual onset, Still present Associated symptoms: Abdominal pain, Other (uncontrolled vomiting) Contributing factors: Other (cannabis use) Improved by: Vomiting, Position, Other (warm bath or shower) Worsened by: Position, Palpation Similar symptoms before: Diagnosis (gastroentertitis) Recently seen: Emergency Dept - Additonal information Additional information: Snow Cooper is a 23-year-old female who reports having issues with nausea and vomiting 2-3 times per month and she usually gets some relief with the use of a hot shower or bath. She was seen in the emergency department here 3 days ago with abdominal pain and vomiting and improved with Toradol Dilaudid and regalan. A CT obtained showed no cause of the pain. The patient has a history of cannabis use and she states that she has cut back tremendously on this but continues to have issues. She also has a past history of Benadryl abuse taking as much as 1-2 bottles of Benadryl per day for hallucinogenic effect. 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 : None HEENT: None Psych: None Musculoskeletal: None Derm: None - Past Surgical History Past Surgical History: No - Present Medications Home Medications: Ambulatory Orders Medication Instructions Recorded Confirmed Albuterol Sulf [Ventolin Hfa 1 - 2 puffs INH Q4HR PRN #1 inhaler 10/18/20 11/20/23 Inhaler] Pnv No.95/Ferrous Fum/Folic AC 1 each PO DAILY 02/27/23 11/20/23 [ Tablet] haloperidoL [Haldol] 2 mg PO Q6HR PRN #12 tablet 02/27/23 11/20/23 HYDROcod/ACETAM 5/325 [[place] 5/325] 1 - 2 tab PO Q6H PRN #10 tablet 11/18/23 11/20/23 Metoclopramide [Reglan] 10 mg PO Q6H PRN #20 tablet 11/18/23 11/20/23 Nebulizer 1 each MC PRN PRN 11/18/23 11/20/23 - Allergies Allergies/Adverse Reactions: Allergies Allergy/AdvReac Type Severity Reaction Status Date / Time bee venom protein (honey bee) Allergy Anaphylaxis Verified 11/20/23 07:33 iodine Allergy Anaphylaxis Verified 11/20/23 07:33 Penicillins Allergy swelling Verified 11/20/23 07:33 shellfish derived Allergy Anaphylaxis Verified 11/20/23 07:33 clindamycin AdvReac Mild Nausea Verified 11/20/23 07:33 - Social History Does the pt smoke?: No Smoking Status: Never smoker Does the pt drink ETOH?: No Does the pt have substance abuse?: Yes - Immunizations Immunizations are current?: Yes Immunizations: TDAP >10years/unknown - POLST Patient has POLST: No PD ED PE NORMAL - Vitals Vital signs reviewed: Yes (normal ) - General General: Alert and oriented X 3, Well developed/nourished, Other (23-year-old female moaning in pain with commodity lead tone and flattened affect.) - HEENT HEENT: Atraumatic, PERRL, EOMI - Neck Neck: Supple, no meningeal sign, No bony TTP - Cardiac Cardiac: RRR, No murmur - Respiratory Respiratory: No respiratory distress, Clear bilaterally - Abdomen Abdomen: Normal bowel sounds, Soft, Non distended, No organomegaly, Other (mild general tenderness without peritoneal signs or specific repeatable tenderness) - Back Back: No CVA TTP, No spinal TTP - Derm Derm: Normal color, Warm and dry, No rash - Extremities Extremities: No deformity, No edema - Neuro Neuro: Alert and oriented X 3, senior care manager 2-12 intact, No motor deficit, No sensory deficit, Normal speech Eye Opening: Spontaneous Motor: Obeys Commands Verbal: Oriented GCS Score: 15 - Psych Psych: Normal mood Results - Vitals Vitals: Vital Signs - 24 hr 11/20/23 07:27 Temperature 37.3 C Heart Rate 75 Respiratory 14 Rate Blood Pressure 115/78 O2 Saturation 94 Oxygen O2 Source Room air - Labs Labs: Laboratory Tests 11/20/23 11/20/23 11/20/23 07:55 07:55 08:55 WBC 5.1 RBC 5.18 Hgb 13.3 Hct 40.8 MCV 78.8 L MCH 25.7 L MCHC 32.6 RDW 14.4 Plt Count 261 MPV 11.2 H Neut # (Auto) 3.1 Lymph # (Auto) 1.6 [place] # (Auto) 0.4 Eos # (Auto) 0.0 Baso # (Auto) 0.0 Absolute Nucleated RBC 0.00 Nucleated RBC % 0.0 Sodium 136 Potassium 3.0 L Chloride 100 L Carbon Dioxide 25 Anion Gap 11.0 BUN 16 Creatinine 0.7 Estimated GFR (MDRD) 103 Glucose 90 Calcium 9.8 Total Bilirubin 0.6 AST 21 ALT 21 Alkaline Phosphatase 63 Total Protein 7.8 Albumin 4.6 Globulin 3.2 Albumin/Globulin Ratio 1.4 Lipase 36 Urine Color DARK YELLOW Urine Clarity CLEAR Urine pH 6.5 Ur Specific [place] 1.020 Urine Protein NEGATIVE Urine Glucose (UA) NEGATIVE Urine Ketones 15 H Urine Occult Blood NEGATIVE Urine Nitrite NEGATIVE Urine Bilirubin SMALL H Urine Urobilinogen 0.2 (NORMAL) Ur Leukocyte Esterase NEGATIVE Ur Microscopic Review NOT INDICATED Urine Culture Comments NOT INDICATED Urine HCG, Qual NEGATIVE Urine Opiates Screen POSITIVE H Ur Buprenorphine Scrn NEGATIVE Ur Oxycodone Screen NEGATIVE Urine Methadone Screen NEGATIVE Ur Barbiturates Screen NEGATIVE Ur Tricyclics Screen NEGATIVE Ur Phencyclidine Scrn NEGATIVE Ur Amphetamine Screen NEGATIVE U Methamphetamines Scrn NEGATIVE U Benzodiazepines Scrn NEGATIVE Urine Cocaine Screen NEGATIVE U Cannabinoids Screen POSITIVE H Ur Drug Screen Comment CUTOFF CONC BELOW: Ethyl Alcohol < 10.0 PD Medical Decision Making - ED course Complexity details: considered differential, d/w patient, d/w family Reviewed Lab Results: We reviewed a complete blood count showing a normal white blood cell count normal hemoglobin hematocrit and platelets MCV is low at 78.8 chemistries show potassium low at 3.0 otherwise normal electrolytes normal kidney and liver function urinalysis shows ketones small bilirubin negative for negative for leukocyte Estrace and nitrate toxicology is positive for opiate and cannabis. I interpreted these laboratory results to be fairly benign with 1 actionable item being the potassium. These laboratory results are consistent with this issue being a problem with cannabis hyperemesis. By history this would be most consistent. ED course: 23-year-old Snwo Cooper appears to have cannabis hyperemesis and she has some relief with the use of Inapsine and Ativan after a trial of Haldol and Benadryl. She did get some relief with the Haldol and Benadryl but this was inadequate. She was administered a liter of saline as well. We found her potassium to be 3.0 and administered oral potassium. Departure - Departure Disposition: 01 Home, Self Care Clinical Impression: Cannabis hyperemesis syndrome concurrent with and due to cannabis abuse Condition: Stable Instructions: ED Nausea Vomiting, ED Marijuana Abuse Follow-Up: Ivy Torres ARNP [Primary Care Provider] - Comments: Jamila, today it looks like the pain and vomiting you are having are related to cannabis hyperemesis. This is a condition which interferes with the temperature sensors in your stomach and causes a reflex nausea and vomiting. This is usually a very miserable condition and cessation of cannabis is recommended. You will likely get some relief by using a warm bath or shower as well. A reason to return to the emergency department or for uncontrolled vomiting and dehydration. On your last visit you were E scribed some nausea medicine and pain medication. You may have luck with the use of the metoclopramide. Forms: PCP List
[2023-11-20] MEDS: HALOPERIDOL 5 MG/ML VIAL IVP STA (07:55)
[2023-11-20] MEDS: diphenhydrAMINE INJ 50 MG/ML VIAL IVP STA (07:56)
[2023-11-20 08:06] LABS: BASOPHILS % (AUTO) 0.6 %; EOSINOPHILS % (AUTO) 0.4 %; HCT - HEMATOCRIT 40.8 % (37.0-47.0); HGB - HEMOGLOBIN 13.3 g/dL (12.0-16.0); LYMPHOCYTES # (AUTO) 1.6 10^3/uL (1.5-3.5); LYMPHOCYTES % (AUTO) 30.8 %; MEAN CORPUSCULAR HEMOGLOBIN 25.7 pg (27.0-31.0); MEAN CORPUSCULAR HGB CONC 32.6 g/dL (32.0-36.0); MEAN CORPUSCULAR VOLUME 78.8 fL (81.0-99.0); MEAN PLATELET VOLUME 11.2 fL (7.9-10.8); MONOCYTES # (AUTO) 0.4 10^3/uL (0.0-1.0); MONOCYTES % (AUTO) 7.5 %; NEUTROPHILS # (AUTO) 3.1 10^3/uL (1.5-6.6); NEUTROPHILS % (AUTO) 60.5 %; PLT - PLATELET COUNT 261 10^3/uL (130-450); RED BLOOD COUNT 5.18 10^6/uL (4.20-5.40); RED CELL DISTRIBUTION WIDTH 14.4 % (12.0-15.0); WHITE BLOOD COUNT 5.1 x10^3/uL (4.8-10.8)
[2023-11-20 08:22] LABS: ALBUMIN 4.6 g/dL (3.2-5.5); ALBUMIN/GLOBULIN RATIO 1.4 (1.0-2.2); ALKALINE PHOSPHATASE 63 IU/L (42-121); ALT ALANINE AMINOTRANSFERASE 21 IU/L (10-60); AST ASPARTATE AMINOTRANSFERASE 21 IU/L (10-42); BILIRUBIN,TOTAL 0.6 mg/dL (0.2-1.0); BUN - BLOOD UREA NITROGEN 16 mg/dL (6-20); CALCIUM 9.8 mg/dL (8.5-10.3); CARBON DIOXIDE - CO2 25 mmol/L (21-32); CHLORIDE 100 mmol/L (101-111); CREATININE 0.7 mg/dL (0.6-1.3); ETOH - ETHANOL < 10.0 mg/dL; GFR - MDRD 103 (>89); GLUCOSE 90 mg/dL (74-104); LIPASE 36 U/L (11-82); SODIUM 136 mmol/L (135-145); TOTAL PROTEIN 7.8 g/dL (6.4-8.9)
[2023-11-20] MEDS: LORazepam 2 MG/ML VIAL IVP STA (08:51)
[2023-11-20] MEDS: DROPERIDOL 5 MG/2 ML VIAL IVP STA (08:51)
[2023-11-20] MEDS: SODIUM CHLORIDE 0.9% 1,000 ML IV STA (08:57)
[2023-11-20 09:11] LABS: BILIRUBIN,URINE SMALL (NEGATIVE); GLUCOSE, URINE (UA) NEGATIVE (NEGATIVE); KETONES,URINE (UA) 15 mg/dL (NEGATIVE); LEUKOCYTE ESTERASE, URINE NEGATIVE (NEGATIVE); NITRITE,URINE NEGATIVE (NEGATIVE); OCCULT BLOOD,URINE NEGATIVE (NEGATIVE); PH,URINE 6.5 PH (5.0-7.5); PROTEIN,URINE NEGATIVE (NEGATIVE); UROBILINOGEN,URINE 0.2 (NORMAL) E.U./dL (NORMAL)
[2023-11-20 09:25] LABS: CLARITY,URINE CLEAR (CLEAR); OPIATE SCREEN, URINE POSITIVE (NEGATIVE); THC CANNABINOID SCREEN, URINE POSITIVE (NEGATIVE)
[2023-11-20 09:26] LABS: AMPHETAMINE SCREEN,URINE NEGATIVE (NEGATIVE); BARBITURATE SCREEN,UR NEGATIVE (NEGATIVE); BENZODIAZEPINES SCREEN, URINE NEGATIVE (NEGATIVE); BUPRENORPHINE SCREEN, URINE NEGATIVE (NEGATIVE); COCAINE SCREEN URINE NEGATIVE (NEGATIVE); METHADONE SCREEN, URINE NEGATIVE (NEGATIVE); METHAMPHETAMINES SCREEN, URINE NEGATIVE (NEGATIVE); OXYCODONE SCREEN, URINE NEGATIVE (NEGATIVE); TRICYCLIC ANTIDEPRESSANT,URINE NEGATIVE (NEGATIVE)
[2023-11-20 09:27] LABS: HCG UR QUAL NEGATIVE
[2023-11-20] MEDS: POTASSIUM BICARB 25 MEQ TABLET PO STA (10:11)
[2023-11-20 10:13] VITALS: BP 109/68; O2SAT 95
== END 2023-11-20 10:17 | disposition home or self-care (01) ==
LOC: ED 07:15
DX: R11.2 Nausea with vomiting, unspecified (principal); F12.10 Cannabis abuse, uncomplicated; E87.6 Hypokalemia
CPT/HCPCS: 36415; 80053; 80306; 81003; 81025; 82077; 83690; 85025; 96374; 96375; 99284; 99285; A9270; J1200; J2060; 81001; 87086

== ENCOUNTER 2023-12-26 16:49 | Outpatient (CLI) | payer MEDICAID | END 2023-12-26 23:59 | disposition short-term general hospital (02) | LOC: EMS 16:49 | DX: S69.91XA Unspecified injury of right wrist, hand and finger(s), initial encounter (principal); S89.92XA Unspecified injury of left lower leg, initial encounter; R07.81 Pleurodynia; S30.811A Abrasion of abdominal wall, initial encounter; S70.212A Abrasion, left hip, initial encounter; S70.211A Abrasion, right hip, initial encounter; V49.50XA Passenger injured in collision with unspecified motor vehicles in traffic accident, initial encounter; Y92.413 State road as the place of occurrence of the external cause | CPT/HCPCS: A0425; A0427 ==

== ENCOUNTER 2024-04-07 12:47 | Outpatient (CLI) | payer MEDICAID | END 2024-04-07 23:59 | disposition critical access hospital (66) | LOC: EMS 12:47 | DX: R10.9 Unspecified abdominal pain (principal); R11.2 Nausea with vomiting, unspecified | CPT/HCPCS: A0425; A0427; A0999 ==

== ENCOUNTER 2024-04-07 13:11 | Emergency (ER) | payer MEDICAID ==
--- NOTE | 2024-04-07 13:23 | ED Physician Documentation ---
PD HPI ABD PAIN - Stated complaint Stated Complaint: ABD PX/N/V - History obtained from History obtained from: Patient, EMS - History of Present Illness Timing - onset: How many days ago (3) Timing - duration: Days (3) Timing - details: Abrupt onset, Still present Quality: Cramping, Aching, Pain Location: All over / everywhere (mostly but has developed more local to lower abd the past day.), Periumbilical Improved by: No: Vomiting Worsened by: Eating Associated symptoms: Nausea, Vomiting, Diarrhea, Loss of appetite. No: Fever, Dysuria, Hematuria Similar symptoms before: No diagnosis (remote episodes infrequently.) Review of Systems Constitutional: denies: Fever, Chills Nose: reports: Congestion. 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 : None HEENT: None Psych: None Musculoskeletal: None Derm: None - Past Surgical History Past Surgical History: No - Present Medications Home Medications: Ambulatory Orders Medication Instructions Recorded Confirmed Albuterol Sulf [Ventolin Hfa 1 - 2 puffs INH Q4HR PRN #1 inhaler 10/18/20 11/20/23 Inhaler] Pnv No.95/Ferrous Fum/Folic AC 1 each PO DAILY 02/27/23 11/20/23 [ Tablet] haloperidoL [Haldol] 2 mg PO Q6HR PRN #12 tablet 02/27/23 11/20/23 HYDROcod/ACETAM 5/325 [[place] 5/325] 1 - 2 tab PO Q6H PRN #10 tablet 11/18/23 11/20/23 Metoclopramide [Reglan] 10 mg PO Q6H PRN #20 tablet 11/18/23 11/20/23 Nebulizer 1 each MC PRN PRN 11/18/23 11/20/23 Famotidine [Pepcid] 20 mg PO DAILY #20 tablet 04/07/24 Hyoscyamine [Levsin] 0.125 mg SL Q6H PRN #15 tablet 04/07/24 Promethazine Supp [Phenergan Supp] 25 mg CA Q6H PRN #10 supp 04/07/24 Promethazine [Phenergan] 25 mg PO Q6H PRN #10 tab 04/07/24 - Allergies Allergies/Adverse Reactions: Allergies Allergy/AdvReac Type Severity Reaction Status Date / Time bee venom protein (honey bee) Allergy Anaphylaxis Verified 04/07/24 13:20 iodine Allergy Anaphylaxis Verified 04/07/24 13:20 Penicillins Allergy swelling Verified 04/07/24 13:20 shellfish derived Allergy Anaphylaxis Verified 04/07/24 13:20 clindamycin AdvReac Mild Nausea Verified 04/07/24 13:20 - Social History Does the pt smoke?: No Smoking Status: Never smoker Does the pt drink ETOH?: No Does the pt have substance abuse?: Yes - Immunizations Immunizations are current?: Yes Immunizations: TDAP >10years/unknown - POLST Patient has POLST: No PD ED PE NORMAL - Vitals Vital signs reviewed: Yes - General General: Alert and oriented X 3, Well developed/nourished, Other (appears in significant pain awith anxious.) - Neck Neck: Supple, no meningeal sign, No adenopathy - Cardiac Cardiac: No murmur. No: RRR (regular but tachycardic) - Respiratory Respiratory: No respiratory distress, Clear bilaterally - Abdomen Abdomen: Normal bowel sounds, Soft, Non distended, Other (tender diffusely, more to periumbilical area. General guarding diffusely in abd. No rebound nor percussion tender. ) Results - Vitals Vitals: Vital Signs - 24 hr 04/07/24 04/07/24 04/07/24 13:17 13:43 15:00 Temperature 36.4 C L Heart Rate 103 H 100 88 Respiratory 24 18 Rate Blood Pressure 117/87 H 115/71 97/58 L O2 Saturation 96 100 97 04/07/24 04/07/24 17:33 18:16 Temperature 36.4 C L Heart Rate 83 83 Respiratory 16 16 Rate Blood Pressure 104/76 104/76 O2 Saturation 97 Oxygen O2 Source Room air - Labs Labs: Laboratory Tests 04/07/24 04/07/24 04/07/24 13:32 13:32 13:32 WBC 6.1 RBC 5.00 Hgb 10.6 L Hct 34.5 L MCV 69.0 L MCH 21.2 L MCHC 30.7 L RDW 17.4 H Plt Count 386 MPV 10.8 Neut # (Auto) 4.5 Lymph # (Auto) 1.0 L [place] # (Auto) 0.5 Eos # (Auto) 0.0 Baso # (Auto) 0.0 Absolute Nucleated RBC 0.00 Nucleated RBC % 0.0 Sodium 137 Potassium 3.2 L Chloride 103 Carbon Dioxide 21 Anion Gap 13.0 BUN 22 H Creatinine 0.8 Estimated GFR (MDRD) 88 L Glucose 135 H Calcium 9.6 Magnesium 1.4 L Total Bilirubin 0.4 AST 13 ALT 15 Alkaline Phosphatase 69 Total Protein 8.0 Albumin 4.5 Globulin 3.5 Albumin/Globulin Ratio 1.3 Lipase 46 Serum HCG, Qual NEGATIVE Urine Color Urine Clarity Urine pH Ur Specific [place] Urine Protein Urine Glucose (UA) Urine Ketones Urine Occult Blood Urine Nitrite Urine Bilirubin Urine Urobilinogen Ur Leukocyte Esterase Urine RBC Urine WBC Ur Squamous Epith Cells Amorphous Sediment Urine Bacteria Ur Microscopic Review Urine Culture Comments 04/07/24 15:19 WBC RBC Hgb Hct MCV MCH MCHC RDW Plt Count MPV Neut # (Auto) Lymph # (Auto) [place] # (Auto) Eos # (Auto) Baso # (Auto) Absolute Nucleated RBC Nucleated RBC % Sodium Potassium Chloride Carbon Dioxide Anion Gap BUN Creatinine Estimated GFR (MDRD) Glucose Calcium Magnesium Total Bilirubin AST ALT Alkaline Phosphatase Total Protein Albumin Globulin Albumin/Globulin Ratio Lipase Serum HCG, Qual Urine Color YELLOW Urine Clarity CLOUDY Urine pH 6.0 Ur Specific [place] 1.025 Urine Protein 30 H Urine Glucose (UA) NEGATIVE Urine Ketones 15 H Urine Occult Blood NEGATIVE Urine Nitrite NEGATIVE Urine Bilirubin SMALL H Urine Urobilinogen 0.2 (NORMAL) Ur Leukocyte Esterase TRACE H Urine RBC None Seen Urine WBC 4-5 Ur Squamous Epith Cells NONE SEEN Amorphous Sediment Marked Urine Bacteria None Seen Ur Microscopic Review INDICATED Urine Culture Comments INDICATED - Rads (name of study) ab d/pelvic CT Relevant Findings:: Prelim report reviewed (no acute findings. Mild diverticulosis without diverticulitis. normal appendix. ), EMP independent interpretation of test PD Medical Decision Making - ED course Complexity details: reviewed results (potassium is low at 3.2, not too bad for amount of vomiting. WBC normal. No elevation of LFTs nor lipase. UA with some leuks and bact but low amount. Await culture. would be secondary to abd pain and diarrhea and not primary cause of symptoms. ), re-evaluated patient (much improved with IV fluids, toradol, droperidol for nauses and hydromorphone for pain. Did have some increase in pain again after CT/time in ED, which is reasonable as process will take 1-2 days to improve if viral GE for instance.), considered differential (has had some episodes similar in the past. Consideration of cannibis induced hyperemesis previously and could be here. But has been 3 days with diarrhea as well, so seems more likely viral GE. Has particular pain/tender lower abd so CT to eval for focal process such as appendix. ), d/w patient Departure - Departure Disposition: 01 Home, Self Care Clinical Impression: Abdominal pain, Nausea and vomiting, Volume depletion, Low blood potassium Condition: Stable Record reviewed to determine appropriate education?: Yes Instructions: ED Nausea Vomiting Follow-Up: Ivy Torres ARNP [Primary Care Provider] - Prescriptions: Hyoscyamine [Levsin] 0.125 mg SL Q6H PRN #15 tablet PRN Reason: Abdominal Pain Famotidine [Pepcid] 20 mg PO DAILY #20 tablet Promethazine [Phenergan] 25 mg PO Q6H PRN #10 tab PRN Reason: Nausea / Vomiting Promethazine Supp [Phenergan Supp] 25 mg CA Q6H PRN #10 supp PRN Reason: Nausea / Vomiting Comments: Your potassium is low from likely the repetitive vomiting and some diarrhea. Otherwise your volume was low as well (dehydrated). You were given IV fluids as well as some electrolytes here. Your basic blood test did not show any abnormalities of your pancreas or liver. CT scan did not show any localized process abnormality. With these test being normal, in particular the CT scan, it is good that there is no signs of appendicitis or gallbladder problem more localized organ dysfunction. It sounds therefore you do have a possible viral gastroenteritis or just irritable bowel with the symptoms you had. For subsequent symptoms you can use promethazine either tablet or suppository to help with the vomiting. Add Levsin if needed for abdominal cramps and pains. Tylenol can be used as well. With the vomiting over the last few days, your stomach would be very irritated so I would suggest famotidine acid reducing medicine daily for the next few weeks. Frequent fluids and sips and bland food over the next day or 2. Advance diet as tolerated. I sent your prescriptions to [facility] pharmacy. Return as needed. Forms: PCP List Discharge Date/Time: 04/07/24 18:16
[2024-04-07] MEDS: SODIUM CHLORIDE 0.9% 1,000 ML IV STA (13:36)
[2024-04-07 13:37] LABS: BASOPHILS % (AUTO) 0.2 %; EOSINOPHILS % (AUTO) 0.2 %; HCT - HEMATOCRIT 34.5 % (37.0-47.0); HGB - HEMOGLOBIN 10.6 g/dL (12.0-16.0); LYMPHOCYTES % (AUTO) 16.7 %; MEAN CORPUSCULAR HEMOGLOBIN 21.2 pg (27.0-31.0); MEAN CORPUSCULAR HGB CONC 30.7 g/dL (32.0-36.0); MEAN PLATELET VOLUME 10.8 fL (7.9-10.8); MONOCYTES # (AUTO) 0.5 10^3/uL (0.0-1.0); MONOCYTES % (AUTO) 8.7 %; NEUTROPHILS # (AUTO) 4.5 10^3/uL (1.5-6.6); NEUTROPHILS % (AUTO) 73.9 %; PLT - PLATELET COUNT 386 10^3/uL (130-450); RED CELL DISTRIBUTION WIDTH 17.4 % (12.0-15.0); WHITE BLOOD COUNT 6.1 x10^3/uL (4.8-10.8)
[2024-04-07 13:51] LABS: ALBUMIN 4.5 g/dL (3.2-5.5); ALBUMIN/GLOBULIN RATIO 1.3 (1.0-2.2); BILIRUBIN,TOTAL 0.4 mg/dL (0.2-1.0); CALCIUM 9.6 mg/dL (8.5-10.3); CREATININE 0.8 mg/dL (0.6-1.3); MAGNESIUM 1.4 mg/dL (1.7-2.3); POTASSIUM 3.2 mmol/L (3.5-4.5)
[2024-04-07] MEDS: KETOROLAC 15 MG/ML VIAL IVP STA (13:51)
[2024-04-07] MEDS: DROPERIDOL 5 MG/2 ML VIAL IVP STA ×2 (13:52→17:34)
[2024-04-07] MEDS: HYDROmorphone 1 MG/ML CARPUJECT IVP STA (13:54)
[2024-04-07 14:55] LABS: HCG,QUALITATIVE BLOOD NEGATIVE
--- NOTE | 2024-04-07 15:36 | CT Report ---
PROCEDURE: Abdomen/Pelvis WO INDICATIONS: Abdominal pain, acute, mostly upper abd TECHNIQUE: A CT scan of the abdomen and pelvis was performed without the use of intravenous contrast. Images we re recorded and evaluated at appropriate window settings. Reformats: coronal and sagittal. For radiat ion dose reduction, the following was used: automated exposure control, adjustment of mA and/or kV ac cording to patient size. COMPARISON: 11/18/2023. FINDINGS: Image quality: Diagnostic. Lower chest: Mild atelectasis in the right middle lobe. Liver: No contour-deforming mass. Gallbladder: No radiopaque stones or wall thickening. Biliary tree: No intrahepatic or extrahepatic dilation, accounting for age. Spleen: No splenomegaly. Pancreas: No pancreatic ductal dilation. Adrenals: No adrenal nodule. Kidneys and ureters: No hydronephrosis. No contour-deforming mass. Stomach, bowel and peritoneum: No gastric or small bowel dilation. No abnormal wall thickening. No pa thologic free fluid. Diverticulosis without evidence of diverticulitis. Normal appendix. Lymph nodes: No central or retroperitoneal adenopathy. Vessels: No infrarenal aortic aneurysm. Reproductive organs: Unremarkable. Bladder: Bladder wall thickness is normal, accounting for underdistention. No calcified bladder stone s. Pelvic lymph nodes: No adenopathy by size criteria. Bones: No aggressive osseous abnormality. Other: No significant ventral or inguinal hernia. IMPRESSION: 1.No acute findings within the abdomen or pelvis. 2.Mild diverticulosis without diverticulitis. Reviewed by: Jared Burnham MD on 04/07/2024 3:35 PM PDT Approved by: Jared Burnham MD on 04/07/2024 3:35 PM PDT Station ID: [id number]
[2024-04-07 15:37] LABS: BILIRUBIN,URINE SMALL (NEGATIVE); GLUCOSE, URINE (UA) NEGATIVE (NEGATIVE); KETONES,URINE (UA) 15 mg/dL (NEGATIVE); LEUKOCYTE ESTERASE, URINE TRACE (NEGATIVE); NITRITE,URINE NEGATIVE (NEGATIVE); OCCULT BLOOD,URINE NEGATIVE (NEGATIVE); PROTEIN,URINE 30 mg/dL (NEGATIVE); UROBILINOGEN,URINE 0.2 (NORMAL) E.U./dL (NORMAL)
[2024-04-07 15:45] LABS: CLARITY,URINE CLOUDY (CLEAR)
[2024-04-07] MEDS: LACTATED RINGERS 1,000 ML IV STA (15:48)
[2024-04-07] MEDS: MAGNESIUM SULFATE 2 GRAM 2 GM/50 ML BAG IV ONE (15:48)
[2024-04-07 15:51] VITALS: O2SAT 97
[2024-04-07 16:16] LABS: AMORPHOUS SEDIMENT,UR Marked /LPF; BACTERIA,URINE None Seen /HPF (None Seen); RBC,URINE None Seen /HPF (0-5); SQUAMOUS EPITHELIAL CELL,UR NONE SEEN (<= Few)
[2024-04-07] MEDS: HYDROmorphone 0.5 MG/0.5 ML SYRINGE IVP STA (17:34)
[2024-04-07 17:36] VITALS: BP 104/76
== END 2024-04-07 18:16 | disposition home or self-care (01) ==
LOC: EDUNIT# → ED 13:11
DX: R11.2 Nausea with vomiting, unspecified (principal); R10.30 Lower abdominal pain, unspecified; E86.9 Volume depletion, unspecified; E87.6 Hypokalemia
CPT/HCPCS: 36415; 74176; 80053; 81001; 83690; 83735; 84703; 85025; 87086; 96361; 96365; 96375; 99283; 99284; J1170; J7120; 81003